=== PATIENT | male | born 1945 | race Caucasian/White ===

== ENCOUNTER 2018-09-25 23:30 | Inpatient (IN) | payer MEDICARE, OTHER ==
[~2018-09-25] VITALS: Ht 180.3 cm; Wt 107.9 kg
[~2018-09-25 23:30] MED LIST: ASPI81CH PO; Amlodipine Bes2.5 MG PO; Aspirin EC81 MG PO; BUDE200IP INH; BUDE6HFA; BUSP5 PO; Betapace120 MG PO; CARV25 PO; CHOL10002 PO; Coumadin5 MG PO; DIGO.125 PO; DILT30 PO; ENTRESTO 24 MG1 EACH PO; EZET10 PO; FURO20 PO; FURO40 PO; Ferosul325 MG PO; GABA300 PO; INSULANPEN SC; Isosorbide Mono60 MG PO; LISI20 PO; LONG ACTING INSULIN SC; METFORMIN HCL500 MG PO; Metformin HCl500 MG PO; NITR.4SL SL; NITR.6SL SL; Nitrostat0.4 MG SL; Novolin R100 UNIT/M SC; OMEP20ER PO; OMEPRAZOLE MAGN20 MG PO; OXYB5 PO; Omeprazole20 M1 PO; POTCHL10ER PO; Prozac20 MG PO; RANO500T PO; Ranexa1000 MG PO; Roxicodone5 MG PO; SHORT ACTING INSULIN SC; SPIR25 PO; Sotalol120 MG PO; VITAMIN D32000 UNIT PO; WARF5 PO; XARELTO20 MG PO; Zestril40 MG; [UNRECOGNIZED DRUG - OTHER] PO
[2018-09-25 23:46] LABS: BASOPHILS ABSOLUTE AUTO 0.06 K/mm3 (0.00-0.23); BASOPHILS PERCENT AUTO 1 % (0-2); EOSINOPHILS ABSOLUTE AUTO 0.08 K/mm3 (0.00-0.68); EOSINOPHILS PERCENT AUTO 1 % (0-6); Hematocrit 39.2 % (37.0-53.0); Hemoglobin 12.3 g/dL (13.5-17.5); IMMATURE GRAN ABSOLUTE AUTO 0.05 K/mm3 (0.00-0.10); IMMATURE GRAN PERCENT AUTO 0 % (0-1); LYMPHOCYTES ABSOLUTE AUTO 0.86 K/mm3 (0.84-5.20); LYMPHOCYTES PERCENT AUTO 7 % (21-46); MONOCYTES ABSOLUTE AUTO 0.75 K/mm3 (0.16-1.47); MONOCYTES PERCENT AUTO 6 % (4-13); Mean Corpuscular HGB 30.4 pg (26.0-34.0); Mean Corpuscular HGB Conc 31.4 g/dL (31.5-36.5); Mean Corpuscular Volume 97 fL (80-100); Mean Platelet Volume 10.8 fL (9.1-12.4); NEUTROPHILS ABSOLUTE AUTO 10.62 K/mm3 (1.96-9.15); NEUTROPHILS PERCENT AUTO 86 % (41-73); Platelet Count 291 K/mm3 (150-400); RDW Coefficient Variation 14.5 % (11.7-14.2); RDW Standard Deviation 51.8 fL (35.1-46.3); Red Blood Cell Count 4.05 M/mm3 (4.30-5.90); White Blood Cell Count 12.42 K/mm3 (4.00-11.30)
[2018-09-26 00:03] LABS: Alanine Aminotransfer (ALT/SGP 13 U/L (12-78); Albumin, Blood 3.7 g/dL (3.4-5.0); Albumin/Globulin Ratio 0.9 (0.8-1.8); Alk Phos 54 U/L (50-136); Anion Gap 10 mmol/L (6-16); Aspartate Aminotrans (AST/SGOT 12 U/L (12-37); Bilirubin, Total 1.2 mg/dL (0.1-1.0); Blood Urea Nitrogen 10 mg/dL (8-24); CO2, Blood 24 mmol/L (21-32); Calcium, Blood 9.1 mg/dL (8.5-10.1); Chloride, Blood 103 mmol/L (98-108); Creatinine, Blood 1.25 mg/dL (0.60-1.20); Globulin, Blood 4.1 g/dL (2.2-4.0); Glomerular Filtration Rate >60 (60-); Glucose, Blood 200 mg/dL (70-99); Potassium, Blood 4.1 mmol/L (3.5-5.5); Sodium, Blood 137 mmol/L (136-145); Total Protein, Blood 7.8 g/dL (6.4-8.2)
[2018-09-26 00:57] LABS: Magnesium, Blood 1.7 mg/dL (1.6-2.4); Troponin I 0.148 ng/mL (0.000-0.040)
[2018-09-26 01:00] LABS: Thyroid Stimulating Hormone 2.58 uIU/mL (0.360-4.800)
--- NOTE | 2018-09-26 06:21 | NUR ---
ARRIVAL TO ICU / SUMMARY PT ARRIVED TO ICU THIS MORNING PCU STATUS. VITALS STABLE. HEART MONITOR SHOWS NORMAL SINUS RHYTHM WITH BUNDLE BRANCH BLOCK. PT DENIES PAIN/DISCOMFORT. ADMISSION ASSESSMENT AND HISTORY COMPLETED PER PT RECOLLECTION AND MEDICAL RECORDS. PT ALERT AND ORIENTED BUT FORGETFUL ABOUT INFORMATION HE HAS PREVIOUSLY SHARED. REPEATS INFORMATION ABOUT HEALTH HISTORY, EVENTS OF THE NIGHT PRIOR AND MEDICATIONS TAKEN MULTIPLE TIMES. PT EDUCATED ABOUT PLAN OF CARE AND IS FORGETFUL THAT HIS HOME MEDS WILL BE RESUMED AT 0900. OTHERWISE, PT FOLLOWING DIRECTIONS AND PARTICIPATES IN CONVERSATIONS APPROPRAITELY. PT'S HOME CPAP SET UP BY RESPIRATORY THERAPY AND PT HAS TAKEN IT ON AND OFF INDEPENDENTLY. PT HAS REMAINED IN NSR WITH BBB, VITALS STABLE THROUGHOUT MORNING, ASSESSMENTS UNCHANGED.
--- NOTE | 2018-09-26 07:08 | NUR ---
REPORT TO ARUNA ZIMMER TO ASSUME CARE
--- NOTE | 2018-09-26 10:57 | NUR ---
0815 PT DENIESE CHEST PAIN OR CURRENT DISTRESS, HOWEVER PT HR ELEVATES AND SOB IS NOTED WITH STANDING TO VOID AND GET OOB. PT IS A/O AND HAS FREQUENT ECTOPY. PT ALSO HAS FAMILY IN VISITING.
--- NOTE | 2018-09-26 16:30 | NUR ---
PT HAS BEEN UP IN ROOM STANDING TO VOID TODAY WITH MOD. WOB NOTED WITH EXERTION. PT TO NUC MED AT 1545 VIA W/C AND BACK W/O INCIDENT. PT REQUESTING TO EAT. VSS NOTED.
--- NOTE | 2018-09-26 17:11 | NUR ---
PT IS RESTING W/O DISTRESS AFTER FIRST PART OF NUC MED TEST. PT VSS. NO C/O CHEST PAIN. REMAINS NS WITH EXERTIONAL RELATED TACHYCARDIA.
[2018-09-27 05:52] LABS: BASOPHILS ABSOLUTE AUTO 0.03 K/mm3 (0.00-0.23); BASOPHILS PERCENT AUTO 0 % (0-2); EOSINOPHILS ABSOLUTE AUTO 0.14 K/mm3 (0.00-0.68); EOSINOPHILS PERCENT AUTO 2 % (0-6); Hematocrit 32.8 % (37.0-53.0); Hemoglobin 10.6 g/dL (13.5-17.5); IMMATURE GRAN ABSOLUTE AUTO 0.05 K/mm3 (0.00-0.10); IMMATURE GRAN PERCENT AUTO 1 % (0-1); LYMPHOCYTES ABSOLUTE AUTO 1.14 K/mm3 (0.84-5.20); LYMPHOCYTES PERCENT AUTO 14 % (21-46); MONOCYTES ABSOLUTE AUTO 0.71 K/mm3 (0.16-1.47); MONOCYTES PERCENT AUTO 9 % (4-13); Mean Corpuscular HGB 30.9 pg (26.0-34.0); Mean Corpuscular HGB Conc 32.3 g/dL (31.5-36.5); Mean Corpuscular Volume 96 fL (80-100); Mean Platelet Volume 10.6 fL (9.1-12.4); NEUTROPHILS ABSOLUTE AUTO 6.17 K/mm3 (1.96-9.15); NEUTROPHILS PERCENT AUTO 75 % (41-73); Platelet Count 243 K/mm3 (150-400); RDW Coefficient Variation 14.6 % (11.7-14.2); RDW Standard Deviation 50.4 fL (35.1-46.3); Red Blood Cell Count 3.43 M/mm3 (4.30-5.90); White Blood Cell Count 8.24 K/mm3 (4.00-11.30)
--- NOTE | 2018-09-27 06:01 | NUR ---
SHIFT SUMMARY PT A&O X4, CALM AND COOPERATIVE. PT C/O CHRONIC NEUROPATHY DISCOMFORT RESULTING IN INABILITY TO SLEEP, CALL TO TIE KNITTER HELPER LENCHO W/ REQUEST FOR PT TO RECEIVE HOME DOSE OF GABAPENTIN, ORDERS GIVEN, SEE EMAR. PT ABLE TO SLEEP AFTER HOME DOSE GABAPENTIN GIVEN. PT LUNG SOUNDS CLEAR, DIM IN BASES. SPO2 > 92% ON RA OR CPAP WHILE SLEEPING. MONITOR SHOWS NSR W/ BBB. VSS. PT NPO SINCE MIDNIGHT W/ PLANS FOR STRESS TEST TODAY. WILL CONTINUE TO MONITOR AND PROVIDE CARE UNTIL REPORT OFF TO DAY SHIFT RN.
[2018-09-27 06:16] LABS: Anion Gap 6 mmol/L (6-16); Blood Urea Nitrogen 13 mg/dL (8-24); Bun/Creatinine Ratio 11.4 (12.0-20.0); CO2, Blood 27 mmol/L (21-32); Calcium, Blood 8.9 mg/dL (8.5-10.1); Chloride, Blood 104 mmol/L (98-108); Creatinine, Blood 1.14 mg/dL (0.60-1.20); Glomerular Filtration Rate >60 (60-); Glucose, Blood 121 mg/dL (70-99); Potassium, Blood 3.7 mmol/L (3.5-5.5); Sodium, Blood 137 mmol/L (136-145)
--- NOTE | 2018-09-27 07:41 | NUR ---
ASSUMED CARE: PT RESTING QUIETLY WITH CPAP IN PLACE. NPO FOR PROCEDURE. DENIES FURTHER NEEDS OR CONCERNS AT THIS TIME.
--- NOTE | 2018-09-27 14:12 | NUR ---
REPORT CALLED TO ARUNA SHEA. PT TRANSFERRED VIA WHEEL CHAIR TO MEDICAL FLOOR.
--- NOTE | 2018-09-27 16:41 | NUR ---
SHIFT SUMMARY ICU TRANSFER THIS AFTERNOON. PATIENT SETTLED INTO ROOM. DENIES PAIN, NAUSEA, OR SHORTNESS OF BREATH. PATIENT'S AT BEDSIDE. SECOND PART OF STRESS TEST TO BE COMPLETED TOMORROW. PATIENT MAY NOT HAVE ANY CAFFEINE AND NEEDS TO BE NPO AFTER BREAKFAST. CALL LIGHT IN REACH, WILL CONTINUE TO MONITOR.
--- NOTE | 2018-09-27 23:17 | NUR ---
CALLED TO HOSPITALIST FOR STOOL SOFTNER PER PT REQUEST. ORDERED DOCUSATE SODIUM SEE ORDER.
--- NOTE | 2018-09-28 06:37 | NUR ---
NOC SHIFT SUMMARY PT HAS BEEN PLEASANT AND COOPERATIVE WITH CARE THIS NIGHT. HE HAS SLEPT MUCH OF THIS NIGHT WITH NO COMPLAINTS. PER EYEGLASS MAKER HIS RATE AND RHYTHM ARE CURRENTLY SINUS AT 85 WITH 1ST DEGREE BLOCK. VSS. APPEARS IN NO ACUTE DISTRESS. WILL CONTINUE TO MONITOR.
--- NOTE | 2018-09-28 18:26 | NUR ---
PATIENT RESTED MOST OF THE DAY. NO ACUTE CHANGES. WAITING FOR CARDIOLOGY TO REVIEW CASE. PAGE WAS SENT. NO COMPLAINTS OF PAIN, SOB, OR NV.
--- NOTE | 2018-09-29 06:46 | NUR ---
NOC SHIFT SUMMARY PT HAS SLEPT MOST OF NIGHT. NO ACUTE CHANGES NOTED. HE HAS NOT HAD ANY COMPLAINTS OF PAIN, N/V, OR SOB. VSS. APPEARS IN NO ACUTE DISTRESS AT THIS TIME.WILL CONTINUE TO MONITOR.
--- NOTE | 2018-09-29 15:29 | NUR ---
1515 PATIENT DISCHARGED HOME. IV REMOVED, NO SS OF INFECTION NOTED. NO NEW MEDS. PATIENT EDUCATED REGARDING AFIB AND FOLLOWING UP WITH PRIMARY CARE DOCTOR . APPOINTMENTS MADE PER DISCHARGE ORDER. FAMILY PACKED UP BELONGINGS AND PATIENT WHEELED OUT TO CAR TO TO TAKE HOME.
== END 2018-09-29 15:30 | disposition home or self-care (01) | DRG 308 ==
LOC: ER 23:30 → ICUW 09-26 00:23 → ICUE 09-26 19:57 → MEDS 09-27 14:12
PROVIDERS: Emergency Medicine; Internal Medicine; ADMIT Family Medicine
DX: I48.0 Paroxysmal atrial fibrillation (principal); I50.23 Acute on chronic systolic (congestive) heart failure; N17.9 Acute kidney failure, unspecified; I25.10 Atherosclerotic heart disease of native coronary artery without angina pectoris; Z95.5 Presence of coronary angioplasty implant and graft; E78.5 Hyperlipidemia, unspecified; G47.33 Obstructive sleep apnea (adult) (pediatric); Z90.79 Acquired absence of other genital organ(s); Z79.82 Long term (current) use of aspirin; F32.9 Major depressive disorder, single episode, unspecified; I11.0 Hypertensive heart disease with heart failure; E11.40 Type 2 diabetes mellitus with diabetic neuropathy, unspecified; Z79.84 Long term (current) use of oral hypoglycemic drugs; J44.9 Chronic obstructive pulmonary disease, unspecified; I27.20 Pulmonary hypertension, unspecified; I08.3 Combined rheumatic disorders of mitral, aortic and tricuspid valves
CPT/HCPCS: 36415; 78452; 80048; 80053; 82947; 83735; 84443; 84484; 85025; 93017; 93306; 96374; 99285-25; A9270; A9500; J0153; J0706; J1815; J1940; J2785; J7030

== ENCOUNTER 2018-10-06 06:56 | Inpatient (IN) | payer OTHER, MEDICARE ==
[~2018-10-06] VITALS: Ht 180.3 cm; Wt 106.8 kg
--- NOTE | 2018-10-06 18:13 | NUR ---
PT'S CHERELLE WAS HERE. THE PT IS STILL VERY SOMNULENT. 45 MINUTES AGO HE WAS VOMITING A SMALL AMOUNT OF PHLEGM. HE IS NOW SLEEPING AGAIN. V/S STABLE. RIGHT GROIN SITE STABLE, SHEATH INTACT. RIGHT RADIAL WRIST SITE IS ALSO WNL, TR BAND IS IN PLACE.
--- NOTE | 2018-10-06 19:36 | NUR ---
174 The pt arrived at 1700, very somnulent, wearing oxygen via n.c. delivery, supine in bed. Right groin site was visulized with Ellen Vanessa and Ryan, both RNs from the [facility]. Arterial sheath is still in place. No bruising, no swelling, no evidence of hematoma. Distal pulses are palpable without difficulty on both lower extremities, but feet are noted to be pale and cool, albeit with brisk capillary refill. The right wrist is noted to have a white immobilizer board in place, and the TR band is also in place. NO evidence of hematoma, swelling or active bleeding. Cap refill on the right hand is noted to be less than 3 seconds. Dried blood is noted around the TR band, but no evidence that any bleeding has happened recently. The pt became more awake and was dry heaving at 174, expectorating some pale yellow and white sputum, in a small amount. AFter this he was again falling asleep. He occasionally awakened and asked for his cpap; however, given his somnulence and nausea with vomiting, this was not applied. Continuous oxymetry and supplemental oxgyen are in place. spo2 noted to be WNL while on 3 l/min delivery via nasal prongs. The pt is supine, in a trendelberg position to elevate his head without flexion of the right hip.
--- NOTE | 2018-10-06 19:44 | NUR ---
1829 The pt stated that he needed to void; however, he was unable to void using the urinal, and requested a urinary catheter. I attempted to insert a 14 guage garcia, but met with resistance, so it was aborted. Passed along in report that perhaps an attempt with a coude or with a straight catheter would be better.
[2018-10-06 19:57] LABS: Source, Urine Catheter
--- NOTE | 2018-10-06 20:04 | NUR ---
ASSUMED PT CARE AT 1915 PT LYING SUPINE IN BED WITH RIGHT LEG STRAIGHT. ARTERIAL SHEATH REMAINS IN PLACE TO RIGHT GROIN. NO SIGNS OF BLEEDING, HEMATOMA, OR SWELLING AROUND SITE. MINIMAL OOZING NOTED UNDER DRESSING. LEFT GROIN SITE WHERE INITIAL ACCESS WAS ATTEMPTED IS TRAINING PROGRAM ASSISTANT WITH NO DRAINAGE, HEMATOMA, TENDERNESS, OR SWELLING. TR BAND REMAINS IN PLACE TO RIGHT WRIST INFLATED FULLY; NO HEMATOMA, BLEEDING, SWELLING, OR TENDERNESS NOTED AROUND SITE; DRY BLOOD NOTED UNDER TR BAND. PT VERY RESTLESS AND LETHARGIC UPON ENTERING ROOM. PT STATED HE HAD TO PEE IN WHICH THE DAY RN STATED THAT SHE ATTEMPTED A 14F FLORES AND WAS UNSUCCESSFUL. OBTAINED A 14F COUDE, WHICH WAS A DIFFICULT INSERTION, BUT SUCCESSFUL ATTEMPT; DARK, DANIEL COLORED URINE WITH SEDIMENT NOTED; UA SENT TO LAB. PT APPEARED TO BE MORE RELAXED AFTER FLORES INSERTION. PT IS ALERT AND ORIENTED AND COMPLIANT WITH KEEPING RIGHT LEG STRAIGHT. HAD THE URGE TO HAVE A BM; LOG ROLLED TO BEDPAN, BUT PT WASN'T SUCCESSFUL. NO NAUSEA NOTED AT THIS TIME; HOWEVER, PRIOR TO SHEATH PULL WILL ASK FOR ORDERS FOR PHENERGAN D/T ZOFRAN BEING UNEFFECTIVE IN FINANCIAL MANAGEMENT CONSULTANT. CALL OUT TO DR. MAHAN SECONDARY TO PTT BEING GREATER THAN 40 AND NO OTHER ORDERS TO RE-DRAW PTT. AWAITING CALL BACK AT THIS TIME. NO FAMILY IS AT BEDSIDE. PT IS ABLE TO MAKE HIS NEEDS KNOWN AT THIS TIME.
[2018-10-06 20:06] LABS: Bilirubin, Urine Neg (Neg); Blood, Urine 1+ (Neg); Glucose Qualitative, Urine Neg (Neg); Ketones, Urine 1+ (Neg); Leukocyte Esterase, Urine 1+ (Neg); Nitrite, Urine Neg (Neg); Protein, Urine 2+ (Neg); Urobilinogen, Urine NORM (Normal)
[2018-10-06 20:11] LABS: Appearance, Urine Clear (Clear); Color, Urine Yellow (P-Yellow)
[2018-10-06 20:12] LABS: Bacteria Rare /hpf; Red Blood Cells, Urine 0-2 /hpf (0-2); Squamous Epithelial Cells Rare /hpf (Few); White Blood Cells, Urine 0-2 /hpf (0-5)
--- NOTE | 2018-10-06 20:49 | NUR ---
SPOKE WITH DR. MCDONALD NEW ORDERS TO GO AHEAD AND PULL SHEATH. ORDERS FOR PHENERGAN IF NEEDED, BUT DR. MCDONALD STATED BENADRYL WORKS BETTER FOR PT.
--- NOTE | 2018-10-06 22:00 | NUR ---
PULLED ARTERIAL SHEATH FROM RIGHT FEMORAL SITE AT 2125; HELD MANUAL PRESSURE FOR 20 MINUTES UNTIL HEMOSTASIS WAS ACHIEVED. JOCY DRESSING APPLIED WITH TRANSPARENT DRESSING COVERING. NO OOZING, HEMATOMA, SWELLING, OR TENDERNESS NOTED AROUND SITE. DISTAL PULSES ARE PALPABLE AND STRONG. CAP REFILL > 3 SECS; HOWEVER, THIS WAS ALSO NOTED PRIOR TO SHEATH PULL. OXYGEN SATURATIONS MAINTAINED GREATER THAN 92% WITH GOOD PLETH. PT TOLERATED PULL VERY WELL WITH NO DROP IN HR OR DIZZINESS. PT DENIED N/V. STILL VERY DROWSY AND JUST WANTS TO SLEEP.
--- NOTE | 2018-10-07 03:15 | NUR ---
PT HAD ONE EPISODE OF VOMITING. PT WAS LYING AT A 30 DEGREE ANGLE, SAT HIMSELF UP AND LEANED OVER THE RAIL TO VOMIT. CLEAR LIQUID NOTED TO EMESIS. LUNG SOUNDS COARSE T/O PRIOR TO EMESIS; HOWEVER, YOU CAN NOW AUDIBLY HEAR PT GURGLING. EDUCATED PT TO COUGH AND SPIT UP SECRETIONS. RIGHT GROIN SITE REMAINS CDI WITH NO OOZING OR HEMATOMA NOTED. WILL CONTINUE TO MONITOR SITE CLOSELY. MEDICATED WITH PRN BENADRYL AND DR. MCDONALD STATED THAT ZOFRAN WAS UNEFFECTIVE, BUT BENADRYL WAS EFFECTIVE.
--- NOTE | 2018-10-07 06:36 | NUR ---
END OF SHIFT SUMMARY RIGHT FEMORAL SITE HAS REMAINED SOFT, NON-TENDER WITH NO OOZING, HEMATOMA, OR SWELLING NOTED. JOCY DRSG IS CDI. RIGHT RADIAL SITE HAS ALSO REMAINED WITH NO OOZING, HEMATOMA, OR SWELLING; SITE IS SOFT, NON-TENDER; JOCY DRSG IS CDI. PT HAD THE ONE EPISODE OF EMESIS; CLEAR. NO FURTHER EPISODES. MEDICATED WITH BENADRYL X1 PER ORDERS. CALL LIGHT WITHIN REACH; PT ABLE TO MAKE NEEDS KNOWN.
--- NOTE | 2018-10-07 09:00 | NUR ---
ASSUMED CARE OF PT AT APPROXIMATELY 0730. PT ALERT AND ORIENTED. VS STABLE. 02 SATS REMAIN ABOVE 90% ON 4L NC. PT TITRATED TO 2L NC. FEMORAL SITE COVERED WITH JOCY DRESSING IS FREE FROM BLEEDING, HEMATOMA FORMATION, OR BRUISING. RIGHT RADIAL SITE COVERED WITH JOCY DRESSING WITH NO SINGS OF BLEEDING, HEMATOMA, OR BRUISING. PT REPORTS FEELING NAUSEOUS AND IS DRY HEAVING. WILL MEDICATE PER EMAR. WILL CONTINUE TO MONITOR.
[2018-10-07 13:27] LABS: BASOPHILS ABSOLUTE AUTO 0.02 K/mm3 (0.00-0.23); BASOPHILS PERCENT AUTO 0 % (0-2); EOSINOPHILS PERCENT AUTO 0 % (0-6); Hematocrit 35.1 % (37.0-53.0); Hemoglobin 11.3 g/dL (13.5-17.5); IMMATURE GRAN ABSOLUTE AUTO 0.07 K/mm3 (0.00-0.10); IMMATURE GRAN PERCENT AUTO 1 % (0-1); LYMPHOCYTES ABSOLUTE AUTO 0.68 K/mm3 (0.84-5.20); LYMPHOCYTES PERCENT AUTO 5 % (21-46); MONOCYTES ABSOLUTE AUTO 0.83 K/mm3 (0.16-1.47); MONOCYTES PERCENT AUTO 6 % (4-13); Mean Corpuscular HGB 30.5 pg (26.0-34.0); Mean Corpuscular HGB Conc 32.2 g/dL (31.5-36.5); Mean Platelet Volume 10.6 fL (9.1-12.4); NEUTROPHILS ABSOLUTE AUTO 13.17 K/mm3 (1.96-9.15); NEUTROPHILS PERCENT AUTO 89 % (41-73); Platelet Count 298 K/mm3 (150-400); RDW Coefficient Variation 14.1 % (11.7-14.2); RDW Standard Deviation 49.4 fL (35.1-46.3); Red Blood Cell Count 3.71 M/mm3 (4.30-5.90); White Blood Cell Count 14.77 K/mm3 (4.00-11.30)
[2018-10-07 13:28] LABS: Mean Corpuscular Volume 95 fL (80-100)
[2018-10-07 13:50] LABS: Alanine Aminotransfer (ALT/SGP 13 U/L (12-78); Albumin, Blood 3.3 g/dL (3.4-5.0); Albumin/Globulin Ratio 0.8 (0.8-1.8); Alk Phos 50 U/L (50-136); Anion Gap 7 mmol/L (6-16); Aspartate Aminotrans (AST/SGOT 18 U/L (12-37); Bilirubin, Direct 0.2 mg/dL (0.0-0.3); Bilirubin, Indirect 0.6 mg/dL (0.1-0.7); Bilirubin, Total 0.8 mg/dL (0.1-1.0); Blood Urea Nitrogen 21 mg/dL (8-24); Bun/Creatinine Ratio 19.3 (12.0-20.0); CHOL/HDL RATIO 5.6; CO2, Blood 26 mmol/L (21-32); Calcium, Blood 8.6 mg/dL (8.5-10.1); Chloride, Blood 108 mmol/L (98-108); Cholesterol 223 mg/dL (50-200); Creatinine, Blood 1.09 mg/dL (0.60-1.20); Globulin, Blood 3.9 g/dL (2.2-4.0); Glomerular Filtration Rate >60 (60-); Glucose, Blood 150 mg/dL (70-99); HDL Cholesterol 40 mg/dL (>39); LDL/HDL RATIO 3.2; Low Density Lipoprotein Chol 129 mg/dL (0-110); Magnesium, Blood 2.1 mg/dL (1.6-2.4); Potassium, Blood 3.8 mmol/L (3.5-5.5); Sodium, Blood 141 mmol/L (136-145); Total Protein, Blood 7.2 g/dL (6.4-8.2); Triglycerides 269 mg/dL (30-160); Very Low Density Lipoprot Chol 54 mg/dL (6-32)
[2018-10-07 13:51] LABS: Thyroid Stimulating Hormone 0.967 uIU/mL (0.360-4.800)
--- NOTE | 2018-10-07 15:08 | NUR ---
REPORT CALLED TO MEDICAL FLOOR RN. PT SENT UP BY BED.
--- NOTE | 2018-10-07 15:21 | NUR ---
TRANSFER NOTE RECEIVED HANDOFF FROM ICU NURSE GUNJAN. 73 YR OLD MALE ADMITTED FOR NSTEMI. FULL CODE. STENT PLACED IN LAD. PT ADMITTED FOR OBSERVATION, KEPT FOR ONE MORE NIGHT DUE TO SEVERE NAUSEA/VOMITING. 2 LPM O2 VIA NC. USES CPAP AT NIGHT AT HOME. NEW FLORES IN SINCE ADMIT DUE TO RETENTION. HX OF BPH, TURP, STENTS, CABBG X3, DM2, HTN, CKD COPD. RT GROIN AND RT RADIAL WERE ACCESSED IN VALLEZ FILTER OPERATOR, JOCY DRESSINGS IN PLACE - ARMBOARD REMAINS ON RT ARM. NS RUNNING @ 100 ML/HR. PT NOT EATING DUE TO NAUSEA. XARELTO FOR DVT PROPHYLAXIS. BLOOD SUGARS Q 6 HRS WHILE PT NOT EATING. BENEDRYL AVAILABLE IV Q 4HRS FOR NAUSEA.
--- NOTE | 2018-10-07 16:04 | NUR ---
SHIFT SUMMARY 73 YR OLD MALE ADMITTED FOR NSTEMI, OBSERVATIONAL STATUS DUE TO NAUSEA/VOMITTING. FULL CODE STATUS. TRANSFERED FROM ICU TODAY. 2 LPM O2 VIA NC. USES CPAP AT HOME AT NIGHT. STENT PLACED - DIAGONAL VEIN GRAFT. HX:DM 2 CAD, HTN, CKD, CABBG X3, TURP, BPH, COPD, STENTS. RT GROIN AND RT RADIAL ACCESS FOR STENT PROCEDURE, NOW DRESSED WITH JOCY DRESSINGS. ARMBOARD REMAINS ON RT ARM. NEW FLORES PLACED FOR RETENTION. PT WILL NOT EAT DUE TO NAUSEA SO GLUCOSE CHEMSTICKS Q 6 HRS. PT IS ON XARELTO. NS RUNNING IN 20 IV LEFT WRIST @ 100 ML/HR. DIARRHEA AT HOME, BUT NOT SINCE ADMIT. ON TELEMETRY: NSR W/BBB @ 76 BPM PER PCU DRILLER AND REAMER. USES A CANE AT HOME @ BASELINE. HAVE NOT HAD HIM UP DUE TO DROWSINESS. IV BENEDRYL AVAILABLE Q 4 HRS FOR NAUSEA.
--- NOTE | 2018-10-07 20:31 | NUR ---
PATIENT RESTING IN BED; DYSPNEA UPON EXERTION. FLORES CATH IN PLACE DRAINING CLEAR YELLOW URINE ASSESSMENTS COMPLETED. PATIENT DENIES PAIN. IV SITE LW C/D/I INFUSING NS AT 100 ML/HR. PATIENT COMPLAINS OF NAUSEA AND COUGHIN INTERMITTENTLY. RAISED HOB, EDUCATED PATIENT REGARDING ASPIRATION RISK. GAVE BENEDRYL IVP, AND BEDTIME MEDS. DRESSINGS X2 C/D/I. SPOKE TO TELEMETRY, PATIENT HR ELEVATED TO 170S WHILE ADJUSTING HOB, BUT THEN SETTLED TO 90 BOM, NSR WITH OCCASIONAL OVCS AND 1ST DEGREE BLOCK. PATOENT DENIES PAIN. WILL CONTINUE TO MONITOR.
[2018-10-08 04:53] LABS: BASOPHILS ABSOLUTE AUTO 0.02 K/mm3 (0.00-0.23); BASOPHILS PERCENT AUTO 0 % (0-2); EOSINOPHILS PERCENT AUTO 0 % (0-6); Hematocrit 33.9 % (37.0-53.0); Hemoglobin 10.6 g/dL (13.5-17.5); IMMATURE GRAN ABSOLUTE AUTO 0.08 K/mm3 (0.00-0.10); IMMATURE GRAN PERCENT AUTO 1 % (0-1); LYMPHOCYTES PERCENT AUTO 7 % (21-46); MONOCYTES ABSOLUTE AUTO 1.06 K/mm3 (0.16-1.47); MONOCYTES PERCENT AUTO 7 % (4-13); Mean Corpuscular HGB 29.6 pg (26.0-34.0); Mean Corpuscular HGB Conc 31.3 g/dL (31.5-36.5); Mean Corpuscular Volume 95 fL (80-100); Mean Platelet Volume 10.6 fL (9.1-12.4); NEUTROPHILS ABSOLUTE AUTO 12.19 K/mm3 (1.96-9.15); NEUTROPHILS PERCENT AUTO 85 % (41-73); Platelet Count 295 K/mm3 (150-400); RDW Coefficient Variation 14.5 % (11.7-14.2); RDW Standard Deviation 50.4 fL (35.1-46.3); Red Blood Cell Count 3.58 M/mm3 (4.30-5.90); White Blood Cell Count 14.35 K/mm3 (4.00-11.30)
[2018-10-08 05:42] LABS: Anion Gap 7 mmol/L (6-16); Blood Urea Nitrogen 21 mg/dL (8-24); Bun/Creatinine Ratio 19.1 (12.0-20.0); CO2, Blood 25 mmol/L (21-32); Calcium, Blood 8.7 mg/dL (8.5-10.1); Chloride, Blood 110 mmol/L (98-108); Glomerular Filtration Rate >60 (60-); Glucose, Blood 154 mg/dL (70-99); Magnesium, Blood 2.1 mg/dL (1.6-2.4); Potassium, Blood 3.7 mmol/L (3.5-5.5); Sodium, Blood 142 mmol/L (136-145)
[2018-10-08 06:33] LABS: International Normalized Ratio 1.2; Prothrombin Time Results 12.5 Sec (9.7-11.5)
--- NOTE | 2018-10-08 16:20 | NUR ---
SHIFT SUMMARY 73 YR OLD MALE ADMITTED FOR NSTEMI. FULL CODE STATUS. IV FLUIDS DC'D. PT HAS BEGUN DRINKING FLUIDS AND TRYING TO EAT SOME SMALL AMOUNTS. DENIES NAUSEA TODAY. TELEMETRY SHOWS A 1ST DEGREE BLOCK @ 86 BPM. A NEW 20 IV WAS PLACED IN RT AC FOR A CT SCAN OF THE HEAD TODAY. O2 IS AT 2 LPM. PT IS ACHS BLOOD GLUCOSE CHEMSTICKS, CARDIAC DIET. FLORES CATHETER IS PATENT AND DRAINING. FEMORAL AND RADIAL ACCESSES FOR A PREVIOUS STENT PROCEDURE ARE COVERED IN JOCY DRESSINGS. ARMBOARD IS STILL IN PLACE FOR RADIAL ACCESS. PT IS MORE ALERT AND ORIENTED TODAY AND HAS NOT REQUIRED BENEDRYL IV COVERAGE.
--- NOTE | 2018-10-08 21:58 | NUR ---
NOTIFIED DR KAYLIE MCDONALD OF PT'S ELEVATED HR OF 186. NEW ORDERS RECEIVED AND PLACED. EKG STRIPS SENT TO DR MCDONALD TO REVIEW. PT TO BE TRANSFERRED TO PCU.
[2018-10-08 22:36] LABS: Anion Gap 12 mmol/L (6-16); Blood Urea Nitrogen 19 mg/dL (8-24); Bun/Creatinine Ratio 19.1 (12.0-20.0); CO2, Blood 19 mmol/L (21-32); Calcium, Blood 8.7 mg/dL (8.5-10.1); Chloride, Blood 106 mmol/L (98-108); Glomerular Filtration Rate >60 (60-); Glucose, Blood 203 mg/dL (70-99); Magnesium, Blood 2.1 mg/dL (1.6-2.4); Potassium, Blood 3.8 mmol/L (3.5-5.5); Sodium, Blood 137 mmol/L (136-145)
[2018-10-09 06:27] LABS: International Normalized Ratio 1.19; Prothrombin Time Results 12.4 Sec (9.7-11.5)
--- NOTE | 2018-10-09 08:03 | NUR ---
END OF SHIFT SUMMARY ASSUMED CARE OF PT FROM MEDICAL FLOOR VIA REGIONAL RECRUITER R/T HR 180'S AFIB @2140. PT HAS HX OF AFIB AT TIMES. PT GIVEN IV METOPROLOL 5MG AND HIS ORDERED DOSE OF SOTALOL AND TRANSFERRED TO THE PCU. PT'S HR PROGRESSIVELY DECREASED AND THEN RHYTHM CONVERTED TO SR, 1 DEGREE HB, WITH PVC'S AROUND 0130. EVENT PLACED IN CHART. PT'S HR HAS REMIANED IN THE 90'S SINCE THEN. LIMITS ON TELE MONITORING LOWERED TO 130 HR. PT HAS REMAINED ON 2L NC. PER REPORT, PT EXPERIENCED A STROKE THIS HOSPITALIZATION AFTER ANGIOGRAM AND STENT PLACEMENT FOR NSTEMI. PRESENTS WITH R SIDED WEAKNESS BUT CAN MOVE R LEG AND ARM, JUST WEAK. PTS PUPILS REACTIVE EQUALLY. NO FACIAL DROOPING NOTICED. PT TALKING APPROPRIATLEY WITH STAFF BUT APPEARS TO STRUGGLE FINDING WORDS TO SAY AT TIMES. PT STATES THIS IS NOT NORMAL. HAS FOREARM BOARD RELATED TO PREV ANGIO. SITE STABLE WELL R GROIN SITE. DR MCDONALD CALLED FOR CLARIFICATION ON IV METOPROLOL DOSE. NOTIFIED ABOU CHANGE IN RHTYHM. PLACES PRN IV METOPROL 5MG x2 IF NEEDED IF RHYTHM CONVERTS BACK TO AFIB. ORDER PLACED IN EMAR. PT HAS BEEN RESTING FOR MAJORITY OF SHIFT POST ASSESMENT. REPORT GIVEN TO ONCOMING NURSE.
--- NOTE | 2018-10-09 08:11 | NUR ---
QTC 0.57 PER SHANK TAPER @0811. WITH LOOKING THROUGH PAST EKG'S, PT'S BASELINE QTC APPEARS TO RANGE FROM .45 TO .524.
--- NOTE | 2018-10-09 23:57 | NUR ---
Assumed care of pt at approx 1900. VSS. No apparent sign of distress. O2 saturations >90% on 2LNC. 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 Right arm with N/T, L arm w/o N/T per pt report. pt reports neuropathy at baseline in BLE. Pt weak throughout, with noted increased weakness in right arm. Pt is PEARRL, no facial droop, speech is thick with occasional studder. Pt able to swallow PO medication by mouth with water. No events on tele. Pt denies chest pain or chest pressure. pt denies SOB. R groin site dressing CDI, no presence of hematoma or signs of bleed present. R radial site CDI, no precense of hematoma or signs of bleed present. Pt denies pain at this time. See shift assessment for detailed assessment. Pt states "I want to sleep tonight". Pt currently resting comfortably in bed. Calls appropriately. Call light within reach, bed in lowest and locked position. Will continue to moniotr and update as needed.
--- NOTE | 2018-10-10 05:27 | NUR ---
Shift Summary Pt slept throughout the majority of this shift. VSS. No apparent sign of distress. Pt denies any chest pain or chest pressure. pt denies SOB and no increase oxygen demand this shift; pt remains at 2L NC with o2 saturations >90%. Pt remains alert and oriented to person, place, time, event. Speech remains thick, unchanged from initial assessment. Pt continues to report right sided weakness, primarily to the right hand/arm. Pupils remains PEARRL. Right radial site remains CDI, soft to the touch, no s/sx hematoma or bleed. Pt denies pain in right radial site. R groin site with devika dressing CDI, soft to the touch, no s/sx hematoma or bleed. Pt denies pain in groin site. No events on tele this shift. HR and BP stable. Pt in NSR. 20 G in L wrist flushed this shift with 10ml NS. Dressing CDI. Pt denies pain with flush, no redness, streaking, infiltration noted. Will continue to monitor and update
[2018-10-10 05:57] LABS: International Normalized Ratio 1.23; Prothrombin Time Results 12.8 Sec (9.7-11.5)
[2018-10-10 08:09] LABS: Source, Urine Catheter
[2018-10-10 08:26] LABS: Appearance, Urine Hazy (Clear); Color, Urine Yellow (P-Yellow); Glucose Qualitative, Urine Neg (Neg); Ketones, Urine Neg (Neg); Leukocyte Esterase, Urine 3+ (Neg); Nitrite, Urine Neg (Neg); Protein, Urine 2+ (Neg); Specific Gravity, Urine 1.015 (1.003-1.022); Urobilinogen, Urine 1+ (Normal)
[2018-10-10 08:27] LABS: Bacteria Few /hpf; Bilirubin, Urine Neg (Neg); Blood, Urine 4+ (Neg); Squamous Epithelial Cells Rare /hpf (Few); White Blood Cells, Urine 25-50 /hpf (0-5)
--- NOTE | 2018-10-10 17:22 | NUR ---
SHIFT SUMMARY PT HAS BEEN A&O X3 WITH NO ACUTE CHANGES . PT WAS CANTANKEROUS THIS MORNING, BUT HAS BEEN COOPERATIVE EVER SINCE. SPEECH CAN BE DIFFICULT TO UNDERSTAND AND HE CAN BE SLOW TO RESPOND, BUT HAS BEEN ALERT AND ORIENTED. PT IS A 2 PERSON ASSIST TO TURN AN PIVOT TO [facility], REQUIRES CONTINUAL DIRECTING FOR LOWER BODY MOVEMENTS. WEAKNESS ON RIGHT SIDE FOR UPPER AND LOWER EXTREMITIES. FLORES WAS REMOVED THIS MORNING AND PT VOIDED 2 HOURS AFTERWARDS. VSS. CALL LIGHT IN REACH, BED IN LOWEST POSITION, PERSONAL ITEMS IN REACH, AND BED ALARM ON, WILL CONTINUE TO MONITOR.
--- NOTE | 2018-10-11 01:15 | NUR ---
Assumed care of pt at approx 1900. VSS. Pt alert and oriented. No apparent sign of distress. O2 saturations >92% on 1.5L NC. Pt denies CP/pressure, denies SOB. Pt calls appropriately, bed alarm on, bed in lowest and locked position and call light within reach. Right sided weakness improving, oral surgeon strength improving. Pt still with poor coordination, noted especially on the right side. Slurred/thick speech improving, pt remains slow to respond. Pt states he feels better. Per day shift RN, pt desires [facility] rehab, if [facility] doesn't have a bed, he prefers the [place] [facility]. Social Service consult in for Pt. R radial site open to air. No sign of hematoma or bleed. CDI. R groin site with devika dressing, CDI. No sign of hematoma or bleed. Pt denies tenderness at either site. See shift assessment for detailed assessment. Will continue to monitor and update as needed.
--- NOTE | 2018-10-11 06:03 | NUR ---
Shift Summary No acute changes this shift. Pt remains a&o with improving strength in R side. Pt VSS, no apparent signs of distress. Pt denies chest pain, chest pressure, pt complaints of SOB this AM. Dr. Myles in at 0600 to see pt[address] Per dr. Myles, pt will be discharged today to [facility]. Dr. Myles requesting help in discharge as he is unfamiliar with routine inpatient discharges. Will pass this along to dayshift RN. Pt uses urinal indepedantly, calls appropriately, bed alarm on with no attempts this shift to exit bed unaccompanied. Will continue to monitor and update as needed
--- NOTE | 2018-10-11 07:49 | NUR ---
NURSING PCU DAYSHIFT: Assumed care of pt at approx 0700. A/O pleasant, cooperative w/care. Denies any pain/discomfort. Mild R facial droop w/L tongue deviation, R side numbness, chronic neuropathy of BLE. Skin is fairly intact, recovered R groin and R radial site. Tele in place, NSR w/BBB and occ PVC's, no c/o CP/pressure, SBP 130's prior to a.m. meds, no noted edema. L/S fairly cta t/o w/dim R base, c/o dyspnea at rest, O2 sat upper 90's on RA, occ dry/RESEARCH AND DEVELOPMENT TECHNICIAN cough, respiration rapid w/accessory muscle use. Abd mildly distended, BT hyperactive, voiding using urinal at bedside. PIV x2, s/l. No s/s of acute distress at this time. Possible discharge to SNF today per report. Pt denies any current needs or questions regarding plan of care. Call light in reach and pt is able to use w/o difficulty. Awaiting rounding from ed manager, cont to monitor for any changes.
--- NOTE | 2018-10-11 17:04 | NUR ---
NURSING PCU DAYSHIFT TRANSFER SUMMARY: No acute changes noted t/o the shift. ST, PT, OT in to assess pt. Seen by induction machine setter, plan continues for discharge to SNF though will be delayed until 10/12. Family at bedside t/o majority of the day, plan of care discussed, all questions answered. Pt changed to medical status w/o tele. Room assignment received, will give telephone report to accepting RN prior to transfer. No s/s of acute distress at this time, call light in reach, cont to monitor until transfer is completed.
--- NOTE | 2018-10-12 06:29 | NUR ---
SHIFT SUMMARY PT A/O. USING URINAL NO C/O PAIN. SAYS HIS R SIDE IS WEAKER THAN L. NO O2 NEEDED. SAYS HE DIDN'T GET MUCH SLEEP T/O NIGHT, WORE CPAP. SOB C EXCERTION, TALKING. EAGER TO D/C. CALL LIGHT IN REACH.
[2018-10-12] MEDS ORDERED: EZET10 PO (08:25)
[2018-10-12] MEDS ORDERED: Acetaminophen325 M1 PO (08:25)
[2018-10-12] MEDS ORDERED: TAMS.4ER PO (08:26)
--- NOTE | 2018-10-12 08:40 | NUR ---
D/C MED REC: PER DR. MAHAN TELEPHONE ORDER. CONTINUE- 1) ASPIRIN EC 81 MG PO DAILY 2) VITAMIN D3 2,000 UNITS PO DAILY 3) FUROSEMIDE 40 MG PO DAILY 4) NITROGLYCERIN 0.4 MG SL Q5 MINUTES PRN CHEST PAIN 5) POTASSIUM CHLORIDE 10 MEQ PO DAILY 6) SPIRONOLACTONE 25 MG PO DAILY DISCONTINUE- 1) METFORMIN 1,000 MG PO BID 2) PRILOSEC 20 MG PO BID 3) RANEXA 1,000 MG PO BID
--- NOTE | 2018-10-12 14:47 | NUR ---
DISCHARGE SUMMARY PATINET ALERT AND ORIENTED. DENIES ANY PAIN. C/O SOB W/ EXERTION. RIGHT SIDED WEAKNESS PRESENT, PATIENT WAS A 2 PA WITH FWW AND GAIT BELT. IV X2 D/C, WNL. [facility] TRANSPORT TO TAKE PATIENT TO [facility]. AT HIS SIDE, ALL BELONGINGS IN HAND. REPORT CALLED TO LORENZO VALDOVINOS AT [facility].
== END 2018-10-12 13:25 | DRG 280 ==
LOC: MHTC 06:56 → ICUW 16:28 → MEDS 10-07 14:59 → PCU 10-08 22:12 → ICUW 10-11 07:28 → PCU 10-11 13:29 → MEDS 10-11 18:22 → ENPENDDIS 10-12 08:05 → MEDS 10-12 13:25
PROVIDERS: Internal Medicine Cardiovascular Disease; ADMIT Internal Medicine Cardiovascular Disease
PROC: 5A09357 Assistance with Respiratory Ventilation, Less than 24 Consecutive Hours, Continuous Positive Airway Pressure (ICD-10-PCS; principal; 2018-10-07)
DX: I21.4 Non-ST elevation (NSTEMI) myocardial infarction (principal); I63.432 Cerebral infarction due to embolism of left posterior cerebral artery; I50.22 Chronic systolic (congestive) heart failure; I13.0 Hypertensive heart and chronic kidney disease with heart failure and stage 1 through stage 4 chronic kidney disease, or unspecified chronic kidney disease; I48.4 Atypical atrial flutter; E11.9 Type 2 diabetes mellitus without complications; I48.0 Paroxysmal atrial fibrillation; J44.9 Chronic obstructive pulmonary disease, unspecified; N40.0 Benign prostatic hyperplasia without lower urinary tract symptoms; G47.33 Obstructive sleep apnea (adult) (pediatric); Z87.891 Personal history of nicotine dependence; Z79.82 Long term (current) use of aspirin; Z95.5 Presence of coronary angioplasty implant and graft; E11.22 Type 2 diabetes mellitus with diabetic chronic kidney disease; I25.5 Ischemic cardiomyopathy; E78.5 Hyperlipidemia, unspecified; Z79.84 Long term (current) use of oral hypoglycemic drugs; E78.00 Pure hypercholesterolemia, unspecified; N32.0 Bladder-neck obstruction; I25.119 Atherosclerotic heart disease of native coronary artery with unspecified angina pectoris; N18.9 Chronic kidney disease, unspecified
CPT/HCPCS: 36415; 51703; 70496; 70498; 80048; 80061; 80076; 81001; 82947; 83036; 83690; 83735; 83880; 84443; 84484; 85025; 85610; 85730; 87077; 87086; 87186; 92523; 93005; 93010; 94667; 96361; 96374; 96375; 96376; 97110; 97112; 97162; 97166; 97530; G0378; J1200; J1940; J7030; Q9967

== ENCOUNTER 2019-10-25 16:18 | Observation (INO) | payer MEDICARE, OTHER ==
[~2019-10-25] VITALS: Ht 182.9 cm; Wt 84.5 kg
[~2019-10-25 16:18] MED LIST changes: +Acetaminophen325 M1 PO; +TAMS.4ER PO
[2019-10-25 17:09] LABS: BASOPHILS ABSOLUTE AUTO 0.05 K/mm3 (0.00-0.23); BASOPHILS PERCENT AUTO 1 % (0-2); EOSINOPHILS ABSOLUTE AUTO 0.04 K/mm3 (0.00-0.68); EOSINOPHILS PERCENT AUTO 1 % (0-6); Hematocrit 41.7 % (37.0-53.0); Hemoglobin 12.9 g/dL (13.5-17.5); IMMATURE GRAN ABSOLUTE AUTO 0.03 K/mm3 (0.00-0.10); IMMATURE GRAN PERCENT AUTO 0 % (0-1); LYMPHOCYTES ABSOLUTE AUTO 1.46 K/mm3 (0.84-5.20); LYMPHOCYTES PERCENT AUTO 19 % (21-46); MONOCYTES ABSOLUTE AUTO 0.67 K/mm3 (0.16-1.47); MONOCYTES PERCENT AUTO 9 % (4-13); Mean Corpuscular HGB 25.7 pg (26.0-34.0); Mean Corpuscular HGB Conc 30.9 g/dL (31.5-36.5); Mean Corpuscular Volume 83 fL (80-100); NEUTROPHILS ABSOLUTE AUTO 5.52 K/mm3 (1.96-9.15); NEUTROPHILS PERCENT AUTO 71 % (41-73); Platelet Count 285 K/mm3 (150-400); RDW Coefficient Variation 14.9 % (11.7-14.2); Red Blood Cell Count 5.02 M/mm3 (4.30-5.90); White Blood Cell Count 7.77 K/mm3 (4.00-11.30)
[2019-10-25 17:24] LABS: Albumin, Blood 3.8 g/dL (3.4-5.0); Albumin/Globulin Ratio 0.9 (0.8-1.8); Bilirubin, Total 0.5 mg/dL (0.1-1.0); Bun/Creatinine Ratio 14.3 (12.0-20.0); Calcium, Blood 9.1 mg/dL (8.5-10.1); Creatinine, Blood 1.26 mg/dL (0.60-1.20); Globulin, Blood 4.4 g/dL (2.2-4.0); Potassium, Blood 4.2 mmol/L (3.5-5.5); Total Protein, Blood 8.2 g/dL (6.4-8.2); Troponin I 0.213 ng/mL (0.000-0.040)
[2019-10-25 20:43] LABS: Magnesium, Blood 1.7 mg/dL (1.6-2.4)
[2019-10-25] MEDS ORDERED: NITR.4SL SL (21:27)
--- NOTE | 2019-10-26 06:12 | NUR ---
SHIFT SUMMARY PATIENT ADMITTED TO THE UNIT VIA STRETCHER FROM THE ED. PATIENT IS ALERT AND ORIENTED AND WAS ABLE TO AMBULATE INDEPENDENTLY TO THE BATHROOM WITH HIS CANE. TELEMETRY IN PLACE AND SHOWS PATIENT'S RHYTHM TO BE IN AFIB PER THE PCU BANK ANALYST. IV PATENT AND FLUSHED. BED IN LOWEST POSITION WITH WHEELS LOCKED. CALL LIGHT WITHIN REACH. REPORT GIVEN TO THIERRY VALDOVINOS.
[2019-10-26] MEDS ORDERED: TAMS.4ER PO (11:34)
--- NOTE | 2019-10-26 13:28 | NUR ---
pt discharged home. [facility] no new meds to educate on. pt dressed himself. iv removed prior to dc. pt instructed to follow up with pcp
== END 2019-10-26 12:33 | disposition home or self-care (01) ==
LOC: ER 16:18 → MEDS 16:19 → ENPENDDIS 10-26 10:00 → MEDS 10-26 12:33
PROVIDERS: Physician Assistant; ADMIT Family Medicine
DX: I25.119 Atherosclerotic heart disease of native coronary artery with unspecified angina pectoris (principal); I11.0 Hypertensive heart disease with heart failure; I50.22 Chronic systolic (congestive) heart failure; I48.21 Permanent atrial fibrillation; G47.33 Obstructive sleep apnea (adult) (pediatric); Z95.5 Presence of coronary angioplasty implant and graft; Z79.01 Long term (current) use of anticoagulants; E11.9 Type 2 diabetes mellitus without complications; E78.5 Hyperlipidemia, unspecified; Z79.899 Other long term (current) drug therapy; Z79.84 Long term (current) use of oral hypoglycemic drugs; Z99.89 Dependence on other enabling machines and devices; J44.9 Chronic obstructive pulmonary disease, unspecified; Z88.5 Allergy status to narcotic agent; Z88.8 Allergy status to other drugs, medicaments and biological substances
CPT/HCPCS: 36415; 71046; 80053; 82947; 83735; 83880; 84484; 85025; 93005; 93010; 94660; 99285-25; A9270; A9270-GY; G0378

== ENCOUNTER 2019-11-23 08:46 | Day surgery (SDC) | payer MEDICARE, OTHER ==
[~2019-11-23] VITALS: Ht 180.3 cm; Wt 109.0 kg
[2019-11-23] MEDS ORDERED: Isosorbide Mono30 MG (09:48)
[2019-11-23] MEDS ORDERED: EZET10 (09:49)
--- NOTE | 2019-11-23 12:42 | NUR ---
COBAN REMOVED ON LEFT BRACHIAL. SMALL AMOUNT OF BLOOD ON JOCY. TEGADERM APPLIED.
--- NOTE | 2019-11-23 14:10 | NUR ---
2 CC REMOVED FROM TR BAND. NO BLEEDING AT SITE. LEFT BRACHIAL DRESSING/ SITE UNCHANGED.
--- NOTE | 2019-11-23 14:20 | NUR ---
ADDITIONAL 4 CC AIRE REMOVED FROM TR BAND. SITE BLEEDING. 4 CC AIR INSTILLED. NO FURTHER BLEEDING.
--- NOTE | 2019-11-23 14:56 | NUR ---
DR. MCKEON here to discuss RESULTS.
--- NOTE | 2019-11-23 15:05 | NUR ---
2 CC AIR REMOVED NO BLEEDING AT SITE.
--- NOTE | 2019-11-23 15:13 | NUR ---
ADDITIONAL 2 CC AIR REMOVED FROM TR BAND.
--- NOTE | 2019-11-23 15:24 | NUR ---
REMAINDER OF AIR REMOVED FROM TR BAND. NO BLEEDING AT SITE.
--- NOTE | 2019-11-23 16:17 | NUR ---
AMBULATED TO BATHROOM. DRESSING FOR DISCHARGE. TOLERATED WELL. NO BLEEDING AT SITE.
--- NOTE | 2019-11-23 16:28 | NUR ---
TR BAND REMOVED. POLYMEM, IMMOBILIZER AND SLING APPLIED.
--- NOTE | 2019-11-23 16:28 | NUR ---
IV REMOVED INTACT. 2X2, COBAN AND MANUAL PRESSURE APPLIED.
--- NOTE | 2019-11-23 16:38 | NUR ---
DISCHARGED HOME VIA WHEELCHAIR. DRIVING
== END 2019-11-23 17:06 | disposition home or self-care (01) ==
LOC: MHTC 08:46
PROC: B201YZZ Plain Radiography of Multiple Coronary Arteries using Other Contrast (ICD-10-PCS; principal; 2019-11-23)
PROC: 4A023N8 Measurement of Cardiac Sampling and Pressure, Bilateral, Percutaneous Approach (ICD-10-PCS; principal; 2019-11-23)
DX: I25.118 Atherosclerotic heart disease of native coronary artery with other forms of angina pectoris (principal); I25.718 Atherosclerosis of autologous vein coronary artery bypass graft(s) with other forms of angina pectoris; I11.0 Hypertensive heart disease with heart failure; I25.82 Chronic total occlusion of coronary artery; I50.9 Heart failure, unspecified; T82.855A Stenosis of coronary artery stent, initial encounter; Y71.2 Prosthetic and other implants, materials and accessory cardiovascular devices associated with adverse incidents; E66.9 Obesity, unspecified; E11.51 Type 2 diabetes mellitus with diabetic peripheral angiopathy without gangrene; E11.40 Type 2 diabetes mellitus with diabetic neuropathy, unspecified; G47.33 Obstructive sleep apnea (adult) (pediatric); I48.0 Paroxysmal atrial fibrillation; J44.9 Chronic obstructive pulmonary disease, unspecified; I25.5 Ischemic cardiomyopathy; E78.5 Hyperlipidemia, unspecified; Z88.5 Allergy status to narcotic agent; Z88.8 Allergy status to other drugs, medicaments and biological substances; Z91.018 Allergy to other foods; Z87.891 Personal history of nicotine dependence; Z79.4 Long term (current) use of insulin; Z79.82 Long term (current) use of aspirin; Z79.899 Other long term (current) drug therapy; Z79.01 Long term (current) use of anticoagulants; Z68.33 Body mass index [BMI] 33.0-33.9, adult
CPT/HCPCS: 76937; 82947; 85347; 93461; 93571; 99152; 99153; C1769; C1887; C1894; J0153; J1644; J2250; J3010; J7030; Q9967

== ENCOUNTER 2020-05-20 15:06 | Observation (INO) | payer OTHER, MEDICARE ==
[~2020-05-20] VITALS: Ht 180.3 cm; Wt 108.7 kg
[~2020-05-20 15:06] MED LIST changes: +Isosorbide Mono30 MG PO
[2020-05-20 16:07] LABS: BASOPHILS ABSOLUTE AUTO 0.04 K/mm3 (0.00-0.23); BASOPHILS PERCENT AUTO 1 % (0-2); EOSINOPHILS ABSOLUTE AUTO 0.03 K/mm3 (0.00-0.68); EOSINOPHILS PERCENT AUTO 0 % (0-6); Hematocrit 40.6 % (37.0-53.0); Hemoglobin 12.9 g/dL (13.5-17.5); IMMATURE GRAN ABSOLUTE AUTO 0.03 K/mm3 (0.00-0.10); IMMATURE GRAN PERCENT AUTO 0 % (0-1); LYMPHOCYTES ABSOLUTE AUTO 1.51 K/mm3 (0.84-5.20); LYMPHOCYTES PERCENT AUTO 20 % (21-46); MONOCYTES ABSOLUTE AUTO 0.61 K/mm3 (0.16-1.47); MONOCYTES PERCENT AUTO 8 % (4-13); Mean Corpuscular HGB Conc 31.8 g/dL (31.5-36.5); Mean Corpuscular Volume 91 fL (80-100); Mean Platelet Volume 10.8 fL (9.1-12.4); NEUTROPHILS ABSOLUTE AUTO 5.41 K/mm3 (1.96-9.15); NEUTROPHILS PERCENT AUTO 71 % (41-73); Platelet Count 223 K/mm3 (150-400); RDW Coefficient Variation 13.7 % (11.7-14.2); RDW Standard Deviation 46.4 fL (35.1-46.3); Red Blood Cell Count 4.45 M/mm3 (4.30-5.90); White Blood Cell Count 7.63 K/mm3 (4.00-11.30)
[2020-05-20 16:22] LABS: Alanine Aminotransfer (ALT/SGP 28 U/L (12-78); Albumin, Blood 3.5 g/dL (3.4-5.0); Albumin/Globulin Ratio 0.9 (0.8-1.8); Alk Phos 60 U/L (50-136); Anion Gap 6 mmol/L (6-16); Aspartate Aminotrans (AST/SGOT 22 U/L (12-37); Bilirubin, Total 0.6 mg/dL (0.1-1.0); Blood Urea Nitrogen 13 mg/dL (8-24); Bun/Creatinine Ratio 11.3 (12.0-20.0); CO2, Blood 28 mmol/L (21-32); Calcium, Blood 8.7 mg/dL (8.5-10.1); Chloride, Blood 104 mmol/L (98-108); Creatinine, Blood 1.15 mg/dL (0.60-1.20); Globulin, Blood 4.1 g/dL (2.2-4.0); Glomerular Filtration Rate >60 (60-); Glucose, Blood 143 mg/dL (70-99); Sodium, Blood 138 mmol/L (136-145); Total Protein, Blood 7.6 g/dL (6.4-8.2); Troponin I 0.224 ng/mL (0.000-0.040)
[2020-05-21 04:37] LABS: BASOPHILS ABSOLUTE AUTO 0.03 K/mm3 (0.00-0.23); BASOPHILS PERCENT AUTO 0 % (0-2); EOSINOPHILS ABSOLUTE AUTO 0.04 K/mm3 (0.00-0.68); EOSINOPHILS PERCENT AUTO 1 % (0-6); Hematocrit 37.9 % (37.0-53.0); Hemoglobin 12.3 g/dL (13.5-17.5); IMMATURE GRAN ABSOLUTE AUTO 0.02 K/mm3 (0.00-0.10); IMMATURE GRAN PERCENT AUTO 0 % (0-1); LYMPHOCYTES ABSOLUTE AUTO 1.89 K/mm3 (0.84-5.20); LYMPHOCYTES PERCENT AUTO 26 % (21-46); MONOCYTES ABSOLUTE AUTO 0.72 K/mm3 (0.16-1.47); MONOCYTES PERCENT AUTO 10 % (4-13); Mean Corpuscular HGB 29.4 pg (26.0-34.0); Mean Corpuscular HGB Conc 32.5 g/dL (31.5-36.5); Mean Corpuscular Volume 91 fL (80-100); NEUTROPHILS ABSOLUTE AUTO 4.65 K/mm3 (1.96-9.15); NEUTROPHILS PERCENT AUTO 63 % (41-73); Platelet Count 203 K/mm3 (150-400); RDW Coefficient Variation 13.8 % (11.7-14.2); Red Blood Cell Count 4.19 M/mm3 (4.30-5.90); White Blood Cell Count 7.35 K/mm3 (4.00-11.30)
[2020-05-21 05:02] LABS: Anion Gap 9 mmol/L (6-16); Blood Urea Nitrogen 13 mg/dL (8-24); Bun/Creatinine Ratio 11.8 (12.0-20.0); CO2, Blood 28 mmol/L (21-32); Calcium, Blood 8.4 mg/dL (8.5-10.1); Chloride, Blood 104 mmol/L (98-108); Glomerular Filtration Rate >60 (60-); Glucose, Blood 122 mg/dL (70-99); Potassium, Blood 3.5 mmol/L (3.5-5.5); Sodium, Blood 141 mmol/L (136-145); Troponin I 0.211 ng/mL (0.000-0.040)
[2020-05-21] MEDS ORDERED: FERSU300 PO (23:46)
[2020-05-22 06:41] LABS: Anion Gap 10 mmol/L (6-16); Blood Urea Nitrogen 12 mg/dL (8-24); CO2, Blood 25 mmol/L (21-32); Calcium, Blood 8.9 mg/dL (8.5-10.1); Chloride, Blood 105 mmol/L (98-108); Glomerular Filtration Rate >60 (60-); Glucose, Blood 144 mg/dL (70-99); Potassium, Blood 3.5 mmol/L (3.5-5.5); Sodium, Blood 140 mmol/L (136-145)
== END 2020-05-22 12:08 | disposition home or self-care (01) ==
LOC: ER 15:06 → PCU 15:07 → MEDS 05-21 16:09
PROVIDERS: Emergency Medicine; Internal Medicine; Nurse Practitioner Acute Care; ADMIT Internal Medicine
DX: I11.0 Hypertensive heart disease with heart failure (principal); I50.23 Acute on chronic systolic (congestive) heart failure; I48.91 Unspecified atrial fibrillation; I48.92 Unspecified atrial flutter; R53.1 Weakness; I25.2 Old myocardial infarction; I25.10 Atherosclerotic heart disease of native coronary artery without angina pectoris; E11.9 Type 2 diabetes mellitus without complications; I25.5 Ischemic cardiomyopathy; N40.0 Benign prostatic hyperplasia without lower urinary tract symptoms; G47.33 Obstructive sleep apnea (adult) (pediatric); J44.9 Chronic obstructive pulmonary disease, unspecified; E66.9 Obesity, unspecified; R77.8 Other specified abnormalities of plasma proteins; Z79.1 Long term (current) use of non-steroidal anti-inflammatories (NSAID); Z95.5 Presence of coronary angioplasty implant and graft; Z87.891 Personal history of nicotine dependence; Z86.73 Personal history of transient ischemic attack (TIA), and cerebral infarction without residual deficits; Z79.899 Other long term (current) drug therapy; Z88.5 Allergy status to narcotic agent; Z88.8 Allergy status to other drugs, medicaments and biological substances; Z79.01 Long term (current) use of anticoagulants; Z91.018 Allergy to other foods; Z79.84 Long term (current) use of oral hypoglycemic drugs; Z68.33 Body mass index [BMI] 33.0-33.9, adult
CPT/HCPCS: 36415; 51703; 71046; 80048; 80053; 82947; 83735; 83880; 84100; 84484; 85025; 85379; 93005; 93010; 94760; 97110; 97161; 97530; A9270; A9270-GY

== ENCOUNTER 2020-07-01 11:43 | Emergency (ER) | payer OTHER, MEDICARE ==
[~2020-07-01] VITALS: Ht 180.3 cm; Wt 108.0 kg
[~2020-07-01 11:43] MED LIST changes: +FERSU300 PO
[2020-07-01 12:13] LABS: BASOPHILS ABSOLUTE AUTO 0.04 K/mm3 (0.00-0.23); BASOPHILS PERCENT AUTO 1 % (0-2); EOSINOPHILS ABSOLUTE AUTO 0.03 K/mm3 (0.00-0.68); EOSINOPHILS PERCENT AUTO 0 % (0-6); Hematocrit 42.6 % (37.0-53.0); IMMATURE GRAN ABSOLUTE AUTO 0.03 K/mm3 (0.00-0.10); IMMATURE GRAN PERCENT AUTO 0 % (0-1); LYMPHOCYTES ABSOLUTE AUTO 1.32 K/mm3 (0.84-5.20); LYMPHOCYTES PERCENT AUTO 19 % (21-46); MONOCYTES ABSOLUTE AUTO 0.68 K/mm3 (0.16-1.47); MONOCYTES PERCENT AUTO 10 % (4-13); Mean Corpuscular HGB 29.4 pg (26.0-34.0); Mean Corpuscular HGB Conc 32.9 g/dL (31.5-36.5); Mean Corpuscular Volume 90 fL (80-100); Mean Platelet Volume 10.9 fL (9.1-12.4); NEUTROPHILS ABSOLUTE AUTO 4.69 K/mm3 (1.96-9.15); NEUTROPHILS PERCENT AUTO 69 % (41-73); Platelet Count 247 K/mm3 (150-400); RDW Coefficient Variation 13.9 % (11.7-14.2); RDW Standard Deviation 45.6 fL (35.1-46.3); Red Blood Cell Count 4.76 M/mm3 (4.30-5.90); White Blood Cell Count 6.79 K/mm3 (4.00-11.30)
[2020-07-01 12:38] LABS: Alanine Aminotransfer (ALT/SGP 28 U/L (12-78); Albumin, Blood 3.8 g/dL (3.4-5.0); Albumin/Globulin Ratio 0.9 (0.8-1.8); Alk Phos 65 U/L (50-136); Anion Gap 8 mmol/L (6-16); Aspartate Aminotrans (AST/SGOT 26 U/L (12-37); Bilirubin, Total 0.7 mg/dL (0.1-1.0); Blood Urea Nitrogen 16 mg/dL (8-24); Bun/Creatinine Ratio 15.1 (12.0-20.0); CO2, Blood 25 mmol/L (21-32); Calcium, Blood 8.7 mg/dL (8.5-10.1); Chloride, Blood 105 mmol/L (98-108); Creatinine, Blood 1.06 mg/dL (0.60-1.20); Globulin, Blood 4.1 g/dL (2.2-4.0); Glomerular Filtration Rate >60 (60-); Glucose, Blood 154 mg/dL (70-99); Potassium, Blood 4.2 mmol/L (3.5-5.5); Sodium, Blood 138 mmol/L (136-145); Total Protein, Blood 7.9 g/dL (6.4-8.2); Troponin I 0.246 ng/mL (0.000-0.040)
== END 2020-07-01 15:01 | disposition home or self-care (01) ==
LOC: ER 11:43
PROVIDERS: Physician Assistant
DX: R00.2 Palpitations (principal); R06.00 Dyspnea, unspecified; I48.91 Unspecified atrial fibrillation; I25.2 Old myocardial infarction; I11.0 Hypertensive heart disease with heart failure; I50.9 Heart failure, unspecified; E11.9 Type 2 diabetes mellitus without complications; I25.10 Atherosclerotic heart disease of native coronary artery without angina pectoris; Z79.899 Other long term (current) drug therapy; Z79.84 Long term (current) use of oral hypoglycemic drugs; Z79.02 Long term (current) use of antithrombotics/antiplatelets; Z88.5 Allergy status to narcotic agent; Z88.8 Allergy status to other drugs, medicaments and biological substances
CPT/HCPCS: 36415; 71046; 80053; 84484; 85025; 93005; 93010; 99285-25

== ENCOUNTER 2021-04-24 10:24 | Inpatient (IN) | payer OTHER ==
[~2021-04-24] VITALS: Ht 180.3 cm; Wt 112.1 kg
[2021-04-24 11:10] LABS: BASOPHILS ABSOLUTE AUTO 0.03 K/mm3 (0.00-0.23); BASOPHILS PERCENT AUTO 0 % (0-2); EOSINOPHILS ABSOLUTE AUTO 0.02 K/mm3 (0.00-0.68); EOSINOPHILS PERCENT AUTO 0 % (0-6); Hematocrit 35.9 % (37.0-53.0); Hemoglobin 11.1 g/dL (13.5-17.5); IMMATURE GRAN ABSOLUTE AUTO 0.07 K/mm3 (0.00-0.10); IMMATURE GRAN PERCENT AUTO 1 % (0-1); LYMPHOCYTES ABSOLUTE AUTO 0.62 K/mm3 (0.84-5.20); LYMPHOCYTES PERCENT AUTO 4 % (21-46); MONOCYTES ABSOLUTE AUTO 0.99 K/mm3 (0.16-1.47); MONOCYTES PERCENT AUTO 6 % (4-13); Mean Corpuscular HGB 28.5 pg (26.0-34.0); Mean Corpuscular HGB Conc 30.9 g/dL (31.5-36.5); Mean Corpuscular Volume 92 fL (80-100); Mean Platelet Volume 10.9 fL (9.1-12.4); NEUTROPHILS ABSOLUTE AUTO 13.79 K/mm3 (1.96-9.15); NEUTROPHILS PERCENT AUTO 89 % (41-73); Platelet Count 211 K/mm3 (150-400); RDW Coefficient Variation 15.2 % (11.7-14.2); RDW Standard Deviation 50.8 fL (35.1-46.3); White Blood Cell Count 15.52 K/mm3 (4.00-11.30)
[2021-04-24 11:21] LABS: Source, Urine Catheter
[2021-04-24 11:24] LABS: Albumin, Blood 3.2 g/dL (3.4-5.0); Albumin/Globulin Ratio 0.7 (0.8-1.8); Bilirubin, Total 1.3 mg/dL (0.1-1.0); Calcium, Blood 9.3 mg/dL (8.5-10.1); Creatinine, Blood 1.31 mg/dL (0.60-1.20); Globulin, Blood 4.3 g/dL (2.2-4.0); Potassium, Blood 4.3 mmol/L (3.5-5.5); Total Protein, Blood 7.5 g/dL (6.4-8.2); Troponin I 0.184 ng/mL (0.000-0.040)
[2021-04-24 11:59] LABS: Appearance, Urine Cloudy (Clear); Bilirubin, Urine Neg (Neg); Blood, Urine 5+ (Neg); Color, Urine Yellow (P-Yellow); Glucose Qualitative, Urine Neg (Neg); Ketones, Urine Neg (Neg); Leukocyte Esterase, Urine 3+ (Neg); Nitrite, Urine Neg (Neg); Protein, Urine 3+ (Neg); Specific Gravity, Urine 1.015 (1.003-1.022); Urobilinogen, Urine NORM (Normal)
[2021-04-24 12:12] LABS: Bacteria Many /hpf; Red Blood Cells, Urine 25-50 /hpf (0-2); Squamous Epithelial Cells Mod /hpf (Few)
[2021-04-24 12:13] LABS: Amorphous Heavy (0-Heavy)
--- NOTE | 2021-04-24 19:38 | NUR ---
PCU ADMIT / SHIFT SUMMARY PT BROUGHT TO PCU-02 BY АЛЕКСАНДР FROM ER @ APPROX 1700. PT A&O X4, ABLE TO STAND & WEAKLY TRANSFER FROM [facility] TO U BED HOLDING ONTO THE BED, REFUSING HELP FROM STAFF. PT COUNCIL, WEARING BILAT HEARING AIDS. GLASSES ON. PT VSS. SPO2 > 92% ON 3L NC. HOME CPAP W/ PT AT BEDSIDE TO BE ASSESSED BY RT. FLORES CATH PATENT & DRAINING. PT REPORTS SELF CATHING AT HOME, FLORES CATH INSERTED IN ER. REPORT GIVEN TO PLACER MINER RN.
[2021-04-25 04:04] LABS: Hematocrit 31.2 % (37.0-53.0); Hemoglobin 9.9 g/dL (13.5-17.5); Mean Corpuscular HGB 28.9 pg (26.0-34.0); Mean Corpuscular HGB Conc 31.7 g/dL (31.5-36.5); Mean Corpuscular Volume 91 fL (80-100); Mean Platelet Volume 10.9 fL (9.1-12.4); Platelet Count 164 K/mm3 (150-400); RDW Coefficient Variation 15.5 % (11.7-14.2); RDW Standard Deviation 50.5 fL (35.1-46.3); Red Blood Cell Count 3.43 M/mm3 (4.30-5.90); White Blood Cell Count 15.14 K/mm3 (4.00-11.30)
[2021-04-25 04:32] LABS: Bun/Creatinine Ratio 17.6 (12.0-20.0); Calcium, Blood 8.7 mg/dL (8.5-10.1); Creatinine, Blood 1.59 mg/dL (0.60-1.20); Potassium, Blood 4.1 mmol/L (3.5-5.5)
--- NOTE | 2021-04-25 05:21 | NUR ---
SHIFT SUMMARY PT ALERT AND ORIENTED. PT IS VERY HARD OF HEARING. THERE HAVE BEEN NO ACUTE CHANGES T/O SHIFT. VITAL SIGNS HAVE BEEN STABLE AND HAS BEEN ON 3L NC AND CURRENTLY ON HOME CPAP WITH 3L BLEED IN WITH SATS ABOVE 92%. PT DENIES CHEST PAIN. FLORES IS DRAINING TO GRAVITY WITH DANIEL COLOR URINE. CALL LIGHT IS WITHIN REACH. WILL CONTINUE TO MONITOR.
--- NOTE | 2021-04-25 09:51 | NUR ---
CARE ASSUMPTION THIS RN ASSUMED CARE FROM FRANCES RN AT 0700. PATIENT IS A/OX4, BUT HEARD OF HEARING, HEARING AIDES AT BEDSIDE. PATIENT GLASSES AT BEDSIDE. VSS. MD IN TO SEE PATIENT THIS MORNING AND PATIENT IS MED STATUS NO TELE. PATIENT REPORTS NO CHEST PAIN, PAIN, OR SOB. CALL LIGHT WITHIN REACH AND BED IN LOWEST POSITION WILL CONTINUE TO MONITOR AND PROVIDE CARE UNTIL HAND OFF WITH MED RN.
--- NOTE | 2021-04-25 10:15 | NUR ---
REPORT TO MED RN THIS RN GAVE REPORT TO RN AND PATIENT TRANSFERED TO NEW ROOM WITH BELONGINGS AND WENT BY WHEELCHAIR.
--- NOTE | 2021-04-25 16:17 | NUR ---
CALL PLACED TO PROVIDER ABOUT PATIENT HOME MED. LEFT VOICEMAIL. AWAITING FOR PHONE CALL
--- NOTE | 2021-04-25 19:28 | NUR ---
PT A/O X4. VITALS STABLE PT IS HARD OF HEARING. PT WEARS CPAP FROM HOME NEEDED PT DENIES DISCOMFORT. FLORES CARE PROVIDED. REPORT GIVEN TO ODD PIECE CHECKER NURSE
--- NOTE | 2021-04-26 06:23 | NUR ---
PATIENT IS A7O X4. AMBULATES WITH A WALKER AND STANDY ASSIT OF ONE. HIS GAIT IS STADY BUT HE IS WEAK. PATIENT IS A DNR BUT HIS ARM BAND IS IN HIS BEDSIDE TABLE BECAUSE HE DOES NOT WANT HIS TO BE MADE AWARE. PATIENT HAS MEDICATIONS AT THE BEDSIDE THAT NEED TO BE SENT HOME WITH HIS .
[2021-04-26 08:40] LABS: Hematocrit 34.1 % (37.0-53.0); Mean Corpuscular HGB 29.2 pg (26.0-34.0); Mean Corpuscular HGB Conc 32.3 g/dL (31.5-36.5); Mean Corpuscular Volume 91 fL (80-100); Mean Platelet Volume 11.3 fL (9.1-12.4); Platelet Count 211 K/mm3 (150-400); RDW Coefficient Variation 15.4 % (11.7-14.2); RDW Standard Deviation 50.4 fL (35.1-46.3); Red Blood Cell Count 3.77 M/mm3 (4.30-5.90); White Blood Cell Count 15.66 K/mm3 (4.00-11.30)
[2021-04-26 08:58] LABS: Bun/Creatinine Ratio 18.8 (12.0-20.0); Creatinine, Blood 1.49 mg/dL (0.60-1.20); Potassium, Blood 4.2 mmol/L (3.5-5.5)
[2021-04-26] MEDS ORDERED: AMOCLA875 PO (18:02)
[2021-04-26] MEDS ORDERED: VISBIOME 112.51 EACH PO (18:03)
--- NOTE | 2021-04-26 18:42 | NUR ---
DISCHARGE SUMMARY PT DISCHARGE THIS SHIFT TO HOME. PT AAOX4, ABLE TO MAKE NEEDS KNOWN, PLEASANT AND COOPERATIVE TO CARE. PT REQUIRES SBA W/ FWW WHEN AMBULATING. FLORES DC TODAY ORDERED, PT TOLERATED WELL. BLADDER SCAN 89 PRIOR TO DC, PT DENIES ANY URINARY DISCOMFORT. NOTIFIED DR. NYE OF BLADDER SCAN RESULTS, NO STRAIGHT CATH NEEDED PER PROVIDER. PT VERBALIZED UNDERSTANDING OF DISCHARGE ORDERS AND EDUCATION. NO ISSUES OR CONCERNS NOTED FROM PATIENT PRIOR TO DISCHARGE. IV LINE DISCONTINUED PRIOR TO DC. DISCHARGE PAPERWORK GIVEN TO PT PRIOR TO DC.
== END 2021-04-26 18:43 | disposition home or self-care (01) | DRG 698 ==
LOC: ER 10:24 → ERHOLD 10:25 → PCU 16:55 → MEDS 04-25 10:15
PROVIDERS: Emergency Medicine; Hospitalist; Nurse Practitioner Acute Care; ADMIT Family Medicine
DX: T83.518A Infection and inflammatory reaction due to other urinary catheter, initial encounter (principal); R65.20 Severe sepsis without septic shock; I50.22 Chronic systolic (congestive) heart failure; N39.0 Urinary tract infection, site not specified; N17.9 Acute kidney failure, unspecified; E87.1 Hypo-osmolality and hyponatremia; I24.8 Other forms of acute ischemic heart disease; I48.91 Unspecified atrial fibrillation; E11.9 Type 2 diabetes mellitus without complications; Z66 Do not resuscitate; I25.5 Ischemic cardiomyopathy; I25.10 Atherosclerotic heart disease of native coronary artery without angina pectoris; I11.0 Hypertensive heart disease with heart failure; N40.0 Benign prostatic hyperplasia without lower urinary tract symptoms; G47.33 Obstructive sleep apnea (adult) (pediatric); F32.A Depression, unspecified; D63.8 Anemia in other chronic diseases classified elsewhere; F41.9 Anxiety disorder, unspecified; E66.01 Morbid (severe) obesity due to excess calories; B95.2 Enterococcus as the cause of diseases classified elsewhere; I35.0 Nonrheumatic aortic (valve) stenosis; J44.9 Chronic obstructive pulmonary disease, unspecified; I25.2 Old myocardial infarction; Z86.73 Personal history of transient ischemic attack (TIA), and cerebral infarction without residual deficits; Z88.5 Allergy status to narcotic agent; Z88.8 Allergy status to other drugs, medicaments and biological substances; Z91.048 Other nonmedicinal substance allergy status; Z91.018 Allergy to other foods; Z95.1 Presence of aortocoronary bypass graft; Z98.890 Other specified postprocedural states; Z95.5 Presence of coronary angioplasty implant and graft; Z90.79 Acquired absence of other genital organ(s); Y84.6 Urinary catheterization as the cause of abnormal reaction of the patient, or of later complication, without mention of misadventure at the time of the procedure
CPT/HCPCS: 36415; 51702; 71045; 80048; 80053; 81001; 82947; 83880; 84484; 85025; 85027; 87077; 87086; 87186; 93005; 93010; 94760; 96365; 96375; 96376; 99285-25; A9270; G0378; J2405; J2543; J7030; J7050

== ENCOUNTER 2021-08-28 17:34 | Emergency (ER) | payer OTHER, MEDICARE ==
[~2021-08-28] VITALS: Ht 180.3 cm; Wt 110.2 kg
[~2021-08-28 17:34] MED LIST changes: +AMOCLA875 PO; +VISBIOME 112.51 EACH PO
[2021-10-03] MEDS ORDERED: JARDIANCE25 MG PO (10:27)
[2021-10-03] MEDS ORDERED: EZET10 PO (10:29)
[2021-10-03] MEDS ORDERED: FURO40 PO (10:30)
[2021-10-03] MEDS ORDERED: POTCHL20ER PO (10:31)
[2021-10-03] MEDS ORDERED: ARTIFICIAL TEA1 EAC1 BOTHEYES (10:33)
[2021-10-03] MEDS ORDERED: NITR.4SL SL (10:34)
[2021-10-03] MEDS ORDERED: PRED20 PO (11:46)
[2021-10-03] MEDS ORDERED: LEVO750 PO (11:46)
[2021-10-29] MEDS ORDERED: VITAMIN D325 MC3 PO (08:22)
[2021-10-29] MEDS ORDERED: Echinacea80 MG PO (08:23)
== END 2021-08-28 19:12 | disposition home or self-care (01) ==
LOC: ER 17:34
DX: S40.012A Contusion of left shoulder, initial encounter (principal); I48.91 Unspecified atrial fibrillation; I25.2 Old myocardial infarction; I11.0 Hypertensive heart disease with heart failure; I50.9 Heart failure, unspecified; I25.10 Atherosclerotic heart disease of native coronary artery without angina pectoris; J44.9 Chronic obstructive pulmonary disease, unspecified; Z86.73 Personal history of transient ischemic attack (TIA), and cerebral infarction without residual deficits; Z88.5 Allergy status to narcotic agent; Z91.018 Allergy to other foods; Z88.8 Allergy status to other drugs, medicaments and biological substances; Z79.84 Long term (current) use of oral hypoglycemic drugs; Z79.899 Other long term (current) drug therapy; W18.30XA Fall on same level, unspecified, initial encounter
CPT/HCPCS: 73030; 99283-25

== ENCOUNTER 2021-10-03 19:33 | Inpatient (IN) | payer OTHER ==
[~2021-10-03] VITALS: Ht 180.3 cm; Wt 107.5 kg
[~2021-10-03 19:33] MED LIST changes: +ARTIFICIAL TEA1 EAC1; +JARDIANCE25 MG PO; +LEVO750 PO; +POTCHL20ER PO; +PRED20 PO
[2021-10-03 20:37] LABS: Hematocrit 34.9 % (37.0-53.0); Hemoglobin 10.8 g/dL (13.5-17.5); Mean Corpuscular HGB Conc 30.9 g/dL (31.5-36.5); Mean Corpuscular Volume 87 fL (80-100); Platelet Count 197 K/mm3 (150-400); RDW Coefficient Variation 15.9 % (11.7-14.2); RDW Standard Deviation 50.4 fL (35.1-46.3); White Blood Cell Count 19.36 K/mm3 (4.00-11.30)
[2021-10-03 20:55] LABS: Albumin, Blood 3.3 g/dL (3.4-5.0); Albumin/Globulin Ratio 0.9 (0.8-1.8); Bilirubin, Total 1.9 mg/dL (0.1-1.0); Bun/Creatinine Ratio 14.8 (12.0-20.0); Calcium, Blood 8.8 mg/dL (8.5-10.1); Creatinine, Blood 1.49 mg/dL (0.60-1.20); Globulin, Blood 3.7 g/dL (2.2-4.0); Potassium, Blood 4.8 mmol/L (3.5-5.5)
[2021-10-03 20:58] LABS: BAND PERCENT MAN 15 % (0-8); BASOPHILS PERCENT MAN 0 % (0-2); EOSINOPHILS PERCENT MAN 0 % (0-6); LYMPHOCYTES ABSOLUTE MAN 0.19 K/mm3 (0.84-5.20); LYMPHOCYTES PERCENT MAN 1 % (21-46); MONOCYTES ABSOLUTE MAN 0.77 K/mm3 (0.16-1.47); MONOCYTES PERCENT MAN 4 % (4-13); NEUTROPHILS ABSOLUTE MAN 18.39 K/mm3 (1.96-9.15); SEG NEUTROPHILS PERCENT MAN 80 % (41-73); TOTAL CELLS COUNTED 100
[2021-10-04 00:14] LABS: International Normalized Ratio 1.28; Prothrombin Time Results 13.2 Sec (9.7-11.5)
--- NOTE | 2021-10-04 00:50 | NUR ---
CALL TO DR COONEY THIS RN CALLS DR COONEY TO NOTIFY OF BLOOD IN ATTENDS FROM [facility], ORDER TO DC HEPARIN GTT ORDER. NOTIFIED OF CRITICAL VALUES. DR COONEY GIVES OKAY FOR NIGHT MEDS THAT PT HAS NOT HAD YET.
[2021-10-04 05:15] LABS: BASOPHILS ABSOLUTE AUTO 0.03 K/mm3 (0.00-0.23); BASOPHILS PERCENT AUTO 0 % (0-2); EOSINOPHILS ABSOLUTE AUTO 0.08 K/mm3 (0.00-0.68); EOSINOPHILS PERCENT AUTO 1 % (0-6); Hematocrit 33.2 % (37.0-53.0); Hemoglobin 10.3 g/dL (13.5-17.5); IMMATURE GRAN ABSOLUTE AUTO 0.18 K/mm3 (0.00-0.10); IMMATURE GRAN PERCENT AUTO 1 % (0-1); LYMPHOCYTES PERCENT AUTO 4 % (21-46); MONOCYTES ABSOLUTE AUTO 0.97 K/mm3 (0.16-1.47); MONOCYTES PERCENT AUTO 6 % (4-13); Mean Corpuscular HGB 27.2 pg (26.0-34.0); Mean Corpuscular Volume 88 fL (80-100); Mean Platelet Volume 11.1 fL (9.1-12.4); NEUTROPHILS ABSOLUTE AUTO 15.54 K/mm3 (1.96-9.15); NEUTROPHILS PERCENT AUTO 89 % (41-73); Platelet Count 179 K/mm3 (150-400); RDW Standard Deviation 50.3 fL (35.1-46.3); Red Blood Cell Count 3.79 M/mm3 (4.30-5.90)
[2021-10-04 05:29] LABS: Bun/Creatinine Ratio 16.8 (12.0-20.0); Calcium, Blood 8.7 mg/dL (8.5-10.1); Creatinine, Blood 1.43 mg/dL (0.60-1.20); Potassium, Blood 4.4 mmol/L (3.5-5.5)
--- NOTE | 2021-10-04 07:21 | NUR ---
PT SUMMARY PT AOX4 T/O SHIFT. DENIES CP. PT USES CPAP WHILE SLEEPING. SERIAL TROPS REPORTED TO DR COONEY. HEPARIN HELD PER DR COONEY ORDER D/T BLOOD IN PT ATTENDS FROM [facility] FOLLOWING EPISODE OF INCONTINENCE.
--- NOTE | 2021-10-04 18:03 | NUR ---
SHIFT SUMMARY PT HAS BEEN RESTING IN ROOM, SLEEPING OFF AND ON. PT WILL PLACE CPAP ON WHEN THEY FEEL THEY MAY FALL ASLEEP. PT HAS CALLED APPROPRIATELY FOR ASSISTANCE. PT HAS BEEN AN ACTIVE PARTICIPANT IN CARE. PT AND SPOUSE RAISED SOME CONCERNS OVER CURRENT HOSPITAL MEDICATIONS VERSUS HOME MEDICATIONS. THIS RN SPOKE WITH THE PROVIDER AND THE PROVIDER ADDRESSED THE MEDICATION CONCERNS. PT EXPERIENCED AN EPISODE OF NAUSEA IMMEDIATELY FOLLOWING INFUSION OF ANTIBIOTICS. ANTI-EMETICS WERE GIVEN AND PROVIDED MINIMAL RELIEF. VITAL SIGNS STABLE, NO ACUTE CHANGES IN PT CONDITION.
[2021-10-05 03:55] LABS: BASOPHILS ABSOLUTE AUTO 0.02 K/mm3 (0.00-0.23); BASOPHILS PERCENT AUTO 0 % (0-2); EOSINOPHILS ABSOLUTE AUTO 0.01 K/mm3 (0.00-0.68); EOSINOPHILS PERCENT AUTO 0 % (0-6); Hematocrit 34.3 % (37.0-53.0); Hemoglobin 10.4 g/dL (13.5-17.5); Mean Corpuscular HGB 26.9 pg (26.0-34.0); Mean Corpuscular HGB Conc 30.3 g/dL (31.5-36.5); Mean Corpuscular Volume 89 fL (80-100); Mean Platelet Volume 11.1 fL (9.1-12.4); Platelet Count 166 K/mm3 (150-400); RDW Coefficient Variation 16.3 % (11.7-14.2); RDW Standard Deviation 53.1 fL (35.1-46.3); Red Blood Cell Count 3.86 M/mm3 (4.30-5.90); White Blood Cell Count 9.82 K/mm3 (4.00-11.30)
[2021-10-05 03:56] LABS: IMMATURE GRAN ABSOLUTE AUTO 0.05 K/mm3 (0.00-0.10); IMMATURE GRAN PERCENT AUTO 1 % (0-1); LYMPHOCYTES ABSOLUTE AUTO 0.91 K/mm3 (0.84-5.20); LYMPHOCYTES PERCENT AUTO 9 % (21-46); MONOCYTES ABSOLUTE AUTO 0.87 K/mm3 (0.16-1.47); MONOCYTES PERCENT AUTO 9 % (4-13); NEUTROPHILS ABSOLUTE AUTO 7.96 K/mm3 (1.96-9.15); NEUTROPHILS PERCENT AUTO 81 % (41-73)
[2021-10-05 04:10] LABS: Bun/Creatinine Ratio 22.2 (12.0-20.0); Calcium, Blood 8.4 mg/dL (8.5-10.1); Creatinine, Blood 1.35 mg/dL (0.60-1.20); Potassium, Blood 3.7 mmol/L (3.5-5.5)
--- NOTE | 2021-10-05 05:38 | NUR ---
SHIFT SUMMARY PT AOX4. VSS; HEART RATE FROM 80'S - 90'S. SYSTOLIC BLOOD PRESSURE FROM 100'S - 120'S. O2 SATS REMAINED >95% ON 2 L VIA NC. DURING NIGHT, PT USING CPAP - O2 SATS REMAINED >95%. PT DENIES SOB, CHEST PAIN OR CHEST PRESSURE. PT COMPLAINS OF URGENCY OF URINATION, CONDOM CATHETER WAS IN PLACE HOWEVER IT CONTINUED TO BE PULLED OFF. PT AGREED TO WEAR ATTENDS INSTEAD OF PLACING ANOTHER CATHETER. PT RESTED THROUGHOUT THE NIGHT. WILL CONTINUE TO MONITOR AND REPORT TO ONCOMING RN. CALL LIGHT WITHIN REACH AND BED IN LOWEST POSITION.
--- NOTE | 2021-10-05 06:54 | NUR ---
DIAL SCREW ASSEMBLER DOCUMENTATION THIS RN REVIEWED DIAL SCREW ASSEMBLER DOCUMENTATION. THIS RN AGREES WITH ASSESSMENTS AND ALL OTHER CHARTING.
--- NOTE | 2021-10-05 11:17 | NUR ---
Patient is sitting on a chair and alert. Spouse, Maricruz, is bedside. Patient tells me about his medical issues and then they share about their life together, how they met, their [employer]ze beliefs and pt's life growing up. Pt voices no concerns and has no signs of spiritual distress but benefits greatly by spiritual care interventions of therapeutic listening, conducting a life review, exploring latter day beliefs and providing gentle encouragement and a calming presence. Pt and Maricruz show signs of an elevated mood.
--- NOTE | 2021-10-05 17:30 | NUR ---
SHIFT SUMMARY; ASSUMED CARE AT 0700. A/A/OX4 DURING SHIFT. 2L O2 VIA NC. DYSPNEA ON EXERTION. AMBULATES WITH WALKER AND STANDBY ASSIST. RECLINER CHAIR FOR SEVERAL HOURS. REPOSITIONS SELF IN BED, INSULIN COVERAGE PER EMAR. STATUS CHANGED TO MEDICAL. SEVERAL INCONINANT VOIDS, VSS, WILL CONTINUE TO MONITOR AND TREAT UNTIL CHANGE OF SHIFT.
--- NOTE | 2021-10-06 05:04 | NUR ---
SHIFT SUMMARY PT AOX4. VSS; SR W/HEART RATE IN 90'S. O2 SATS >96% ON 2 L. CPAP AT BEDSIDE, PT USING THROUGHOUT NIGHT, OZ SATS >96%. PT STATES HE "FEELS A LOT BETTER TODAY". PT DENIES SOB, CHEST PAIN OR CHEST PRESSURE. PT UP TO BSC OR TO USE URINAL W/ FWW AND 1 PERSON ASSIST. PT TOLERATES WELL, ALTHOUGH EXPERIENCES SOB WITH EXERTION. PT ABLE TO RECOVER WELL. NO ACUTE CHANGES OR CONCERN IN PT STATUS. WILL CONTINUE TO MONITOR. BED IN LOWEST POSITION AND CALL LIGHT WITHIN REACH.
[2021-10-06 05:54] LABS: BASOPHILS ABSOLUTE AUTO 0.03 K/mm3 (0.00-0.23); BASOPHILS PERCENT AUTO 0 % (0-2); EOSINOPHILS ABSOLUTE AUTO 0.04 K/mm3 (0.00-0.68); EOSINOPHILS PERCENT AUTO 1 % (0-6); Hematocrit 32.2 % (37.0-53.0); Hemoglobin 9.9 g/dL (13.5-17.5); IMMATURE GRAN ABSOLUTE AUTO 0.07 K/mm3 (0.00-0.10); IMMATURE GRAN PERCENT AUTO 1 % (0-1); LYMPHOCYTES PERCENT AUTO 13 % (21-46); MONOCYTES ABSOLUTE AUTO 0.68 K/mm3 (0.16-1.47); MONOCYTES PERCENT AUTO 10 % (4-13); Mean Corpuscular HGB 26.8 pg (26.0-34.0); Mean Corpuscular HGB Conc 30.7 g/dL (31.5-36.5); Mean Corpuscular Volume 87 fL (80-100); NEUTROPHILS PERCENT AUTO 75 % (41-73); Platelet Count 180 K/mm3 (150-400); RDW Coefficient Variation 16.3 % (11.7-14.2); RDW Standard Deviation 51.1 fL (35.1-46.3); Red Blood Cell Count 3.69 M/mm3 (4.30-5.90); White Blood Cell Count 6.82 K/mm3 (4.00-11.30)
--- NOTE | 2021-10-06 06:00 | NUR ---
FEATURE WRITER DOCUMENTATION THIS RN HAS REVIEWED THE STUDENT NURSE'S DOCUMENTATION AND THIS RN AGREES WITH ALL CHARTING MADE BY FEATURE WRITER.
[2021-10-06 06:41] LABS: Calcium, Blood 8.7 mg/dL (8.5-10.1); Creatinine, Blood 1.21 mg/dL (0.60-1.20); Potassium, Blood 3.5 mmol/L (3.5-5.5)
--- NOTE | 2021-10-06 08:00 | NUR ---
PT IS A&OX4. YOMBA SHOSHONE. COMMUNICATES NEEDS WELL. PT DENIES PAIN. ECG SHOWS SR WITH BBB. BP STABLE. HOLOSYSTOLIC MURMUR NOTED. NO NOTED EDEMA. LUNGS DIMINISHED TO THE BASES WITH FEW, FINE CRACKLE TO THE RIGHT BASE. SATS>90% ON 2 LITERS NASAL CANULA. PT DENIES GI DISTRESS. PT HAS ATTENDS IN PLACE. INCONTINENT AT TIMES, BUT ATTEMPTS TO USE THE URINAL PRN. SKIN IS PALE, WARM, AND DRY. NO NOTED SKIN BREAKDOWN. PT SITTING UP IT THE CHAIR FEEDING HIMSELF BREAKFAST WITHOUT NOTED DISTRESS. CALL LIGHT WITHIN REACH. ANTICIPATE POSSIBLE DISCHARGE LATER TODAY. EVAL FOR HOME O2 HAS BEEN ORDERED.
[2021-10-06] MEDS ORDERED: SOTO80 PO (08:06)
[2021-10-06] MEDS ORDERED: METF500 PO (08:06)
--- NOTE | 2021-10-06 11:36 | NUR ---
PT AMBULATED WITH PHYSICAL THERAPY AND RESPIRATORY THERAPY. EVAL FOR HOME O2 COMPLETE. PT NOW SITTING AT THE EDGE OF THE BED. HE DENIES COMPLAINTS AND NO NOTED DISTRESS.
--- NOTE | 2021-10-06 13:20 | NUR ---
PT REPORTS THAT HE IS VERY TIRED AFTER AMBULATING WITH PHYSICAL THERAPY AND HIS SHOWER THIS AM. PT REFUSING OT AT THIS TIME. HE REQUESTS TO JUST "SLEEP." REQUEST GRANTED. CALL LIGHT WITHIN REACH.
--- NOTE | 2021-10-06 15:30 | NUR ---
PT HAS BEEN NAPPING THIS AFTERNOON. HE AWAKENS A&OX4 AND HE DENIES COMPLAINTS. 12 LEAD ECG DONE AND QT INTERVAL REVIEWED WITH ORDERING MD. PLAN TO DISCHARGE PT TONIGHT. DANIEL FROM [facility] IS ARRANGING FOR HOME O2.
[2021-10-06] MEDS ORDERED: ONDA4 PO (17:43)
--- NOTE | 2021-10-06 18:45 | NUR ---
REVIEWED DC INSTRUCTIONS WITH PT AND SPOUSE. BOTH VERBALIZING CONCERN THAT NO ANTIBIOTIC HAD BEEN PRESCRIBED. DR. PALM CONTACTED AND CONFIRMED THAT NO ANTIBIOTIC NEEDED-PT HAS COMPLETED 5 DAYS OF ANTIBIOTICS. PT DISCHARGED TO HOME, OUT VIA WHEELCHAIR WITH DISCHARGE INSTRUCTIONS AND BELONGINGS ON HAND.
== END 2021-10-06 19:20 | disposition home or self-care (01) | DRG 871 ==
LOC: ER 19:33 → PCU 22:32
PROVIDERS: Physician Assistant; Student in an Organized Health Care Education/Training Program; ADMIT Family Medicine
PROC: 3E03329 Introduction of Other Anti-infective into Peripheral Vein, Percutaneous Approach (ICD-10-PCS; principal; 2021-10-03)
PROC: 5A09357 Assistance with Respiratory Ventilation, Less than 24 Consecutive Hours, Continuous Positive Airway Pressure (ICD-10-PCS; 2021-10-03)
DX: A41.51 Sepsis due to Escherichia coli [E. coli] (principal); I50.23 Acute on chronic systolic (congestive) heart failure; N39.0 Urinary tract infection, site not specified; N17.9 Acute kidney failure, unspecified; E87.2 Acidosis; I42.9 Cardiomyopathy, unspecified; E87.1 Hypo-osmolality and hyponatremia; I24.8 Other forms of acute ischemic heart disease; R65.20 Severe sepsis without septic shock; E11.22 Type 2 diabetes mellitus with diabetic chronic kidney disease; N18.30 Chronic kidney disease, stage 3 unspecified; I48.91 Unspecified atrial fibrillation; I25.10 Atherosclerotic heart disease of native coronary artery without angina pectoris; G47.33 Obstructive sleep apnea (adult) (pediatric); R06.00 Dyspnea, unspecified; R09.02 Hypoxemia; D72.829 Elevated white blood cell count, unspecified; I35.0 Nonrheumatic aortic (valve) stenosis; R30.0 Dysuria; N40.0 Benign prostatic hyperplasia without lower urinary tract symptoms; D64.9 Anemia, unspecified; I25.2 Old myocardial infarction; Z87.891 Personal history of nicotine dependence; Z99.81 Dependence on supplemental oxygen; Z95.1 Presence of aortocoronary bypass graft; Z95.5 Presence of coronary angioplasty implant and graft; Z98.890 Other specified postprocedural states; Z79.2 Long term (current) use of antibiotics; Z79.01 Long term (current) use of anticoagulants; Z79.52 Long term (current) use of systemic steroids; Z79.899 Other long term (current) drug therapy; Z88.5 Allergy status to narcotic agent; Z91.018 Allergy to other foods; Z88.8 Allergy status to other drugs, medicaments and biological substances; E66.9 Obesity, unspecified; Z68.32 Body mass index [BMI] 32.0-32.9, adult
CPT/HCPCS: 36415; 80048; 80053; 82947; 83036; 83605; 83690; 83880; 84484; 85025; 85610; 85730; 87040; 93005; 93010; 93306; 94660; 94761; 94762; 96365; 96375; 97110; 97116; 97162; 97166; 97530; 99285-25; A9270; J0290; J0696; J1815; J1940; J1956; J2405; J7040

== ENCOUNTER 2022-04-10 00:40 | Emergency (ER) | payer OTHER ==
[~2022-04-10] VITALS: Ht 180.3 cm; Wt 108.4 kg
[~2022-04-10 00:40] MED LIST changes: -ARTIFICIAL TEA1 EAC1; +ARTIFICIAL TEA1 EAC1 BOTHEYES; +Echinacea80 MG PO; +METF500 PO; +ONDA4 PO; +SOTO80 PO; +VITAMIN D325 MC3 PO
== END 2022-04-10 02:13 | disposition home or self-care (01) ==
LOC: ER 00:40
DX: R04.0 Epistaxis (principal); I25.2 Old myocardial infarction; N40.0 Benign prostatic hyperplasia without lower urinary tract symptoms; E11.9 Type 2 diabetes mellitus without complications; I11.0 Hypertensive heart disease with heart failure; I50.9 Heart failure, unspecified; I25.10 Atherosclerotic heart disease of native coronary artery without angina pectoris; J44.9 Chronic obstructive pulmonary disease, unspecified; Z86.73 Personal history of transient ischemic attack (TIA), and cerebral infarction without residual deficits; Z88.5 Allergy status to narcotic agent; Z88.8 Allergy status to other drugs, medicaments and biological substances; Z91.018 Allergy to other foods; Z79.02 Long term (current) use of antithrombotics/antiplatelets; Z79.899 Other long term (current) drug therapy; Z95.1 Presence of aortocoronary bypass graft
CPT/HCPCS: 99283

== ENCOUNTER → 2022-05-19 | Outpatient (CLI) | payer OTHER | END | disposition home or self-care (01) | LOC: LAB SHORT 14:21 | DX: R30.0 Dysuria (principal) | CPT/HCPCS: 87086 ==

== ENCOUNTER 2023-06-13 16:19 | Emergency (ER) | payer MEDICARE ==
[~2023-06-13] VITALS: Ht 180.3 cm; Wt 108.8 kg
[~2023-06-13 16:19] MED LIST changes: +CEPH500 PO
[2023-06-13 16:46] LABS: BASOPHILS ABSOLUTE AUTO 0.04 K/mm3 (0.00-0.23); BASOPHILS PERCENT AUTO 1 % (0-2); EOSINOPHILS ABSOLUTE AUTO 0.06 K/mm3 (0.00-0.68); EOSINOPHILS PERCENT AUTO 1 % (0-6); Hemoglobin 13.7 g/dL (13.5-17.5); IMMATURE GRAN ABSOLUTE AUTO 0.02 K/mm3 (0.00-0.10); IMMATURE GRAN PERCENT AUTO 0 % (0-1); LYMPHOCYTES ABSOLUTE AUTO 1.22 K/mm3 (0.84-5.20); LYMPHOCYTES PERCENT AUTO 16 % (21-46); MONOCYTES ABSOLUTE AUTO 0.63 K/mm3 (0.16-1.47); MONOCYTES PERCENT AUTO 8 % (4-13); Mean Corpuscular HGB 27.9 pg (26.0-34.0); Mean Corpuscular HGB Conc 31.9 g/dL (31.5-36.5); Mean Corpuscular Volume 88 fL (80-100); NEUTROPHILS ABSOLUTE AUTO 5.88 K/mm3 (1.96-9.15); NEUTROPHILS PERCENT AUTO 75 % (41-73); Platelet Count 208 K/mm3 (150-400); RDW Coefficient Variation 17.2 % (11.7-14.2); Red Blood Cell Count 4.91 M/mm3 (4.30-5.90); White Blood Cell Count 7.85 K/mm3 (4.00-11.30)
[2023-06-13 17:18] LABS: Albumin, Blood 3.6 g/dL (3.4-5.0); Albumin/Globulin Ratio 0.9 (0.8-1.8); Bilirubin, Total 0.6 mg/dL (0.1-1.0); Bun/Creatinine Ratio 12.1 (12.0-20.0); Creatinine, Blood 1.32 mg/dL (0.60-1.20); Globulin, Blood 3.8 g/dL (2.2-4.0); Potassium, Blood 4.3 mmol/L (3.5-5.5); Total Protein, Blood 7.4 g/dL (6.4-8.2)
[2023-06-13 18:07] LABS: Source, Urine Clean Catch
[2023-06-13 18:16] LABS: Appearance, Urine Clear (Clear); Bilirubin, Urine Neg (Neg); Blood, Urine Neg (Neg); Color, Urine Yellow (P-Yellow); Glucose Qualitative, Urine Neg (Neg); Ketones, Urine Neg (Neg); Leukocyte Esterase, Urine Neg (Neg); Nitrite, Urine Neg (Neg); Protein, Urine Neg (Neg); Urobilinogen, Urine NORM (Normal)
[2023-06-13 20:15] VITALS: BP 130/71
[2023-06-17] MEDS ORDERED: VITAMIN D31000 UNI1 PO (20:37)
[2023-06-17] MEDS ORDERED: OZEMPIC0.25 MG/02 SC (22:43)
[2023-06-17] MEDS ORDERED: SERT25 PO (22:44)
[2023-06-17] MEDS ORDERED: STIOLTO RESPIMAT4 G1 INH (22:48)
[2023-06-17] MEDS ORDERED: FERSU300 PO (22:49)
[2023-06-18] MEDS ORDERED: CLOP75 PO (16:31)
[2023-06-18] MEDS ORDERED: ASPI81CH PO (16:32)
[2023-06-18] MEDS ORDERED: PANT40 PO (16:32)
== END 2023-06-13 20:25 | disposition home or self-care (01) ==
LOC: ER 16:19
PROVIDERS: Student in an Organized Health Care Education/Training Program
DX: I25.118 Atherosclerotic heart disease of native coronary artery with other forms of angina pectoris (principal); I11.0 Hypertensive heart disease with heart failure; I50.20 Unspecified systolic (congestive) heart failure; I48.91 Unspecified atrial fibrillation; I25.2 Old myocardial infarction; E11.9 Type 2 diabetes mellitus without complications; N40.0 Benign prostatic hyperplasia without lower urinary tract symptoms; G47.33 Obstructive sleep apnea (adult) (pediatric); J44.9 Chronic obstructive pulmonary disease, unspecified; Z88.5 Allergy status to narcotic agent; Z88.8 Allergy status to other drugs, medicaments and biological substances; Z91.018 Allergy to other foods; Z79.899 Other long term (current) drug therapy; Z79.01 Long term (current) use of anticoagulants
CPT/HCPCS: 71046; 80053; 81003; 83880; 84484; 85025; 93005; 93010; 99285-25

== ENCOUNTER 2023-06-25 13:17 | Emergency (ER) | payer OTHER ==
[~2023-06-25] VITALS: Ht 180.3 cm; Wt 107.5 kg
[~2023-06-25 13:17] MED LIST changes: +CLOP75 PO; +OZEMPIC0.25 MG/02 SC; +PANT40 PO; +SERT25 PO; +STIOLTO RESPIMAT4 G1 INH; +VITAMIN D31000 UNI1 PO
[2023-06-25] MEDS ORDERED: Oxymetazoline 0.05% Nasal Relief Spray 15mL BTL ONE (13:35)
== END 2023-06-25 16:02 | disposition home or self-care (01) ==
LOC: ER 13:17
DX: R04.0 Epistaxis (principal); I48.91 Unspecified atrial fibrillation; I25.2 Old myocardial infarction; I11.0 Hypertensive heart disease with heart failure; I50.9 Heart failure, unspecified; E11.9 Type 2 diabetes mellitus without complications; I25.5 Ischemic cardiomyopathy; I25.10 Atherosclerotic heart disease of native coronary artery without angina pectoris; N40.0 Benign prostatic hyperplasia without lower urinary tract symptoms; G47.33 Obstructive sleep apnea (adult) (pediatric); Z88.5 Allergy status to narcotic agent; Z88.8 Allergy status to other drugs, medicaments and biological substances; Z91.018 Allergy to other foods; Z79.899 Other long term (current) drug therapy; Z79.85 Long-term (current) use of injectable non-insulin antidiabetic drugs; Z79.02 Long term (current) use of antithrombotics/antiplatelets; Z79.01 Long term (current) use of anticoagulants; Z79.82 Long term (current) use of aspirin; Z99.89 Dependence on other enabling machines and devices
CPT/HCPCS: 30901; 99283-25; A9270

== ENCOUNTER 2024-09-12 11:31 | Emergency (ER) | payer MEDICARE, OTHER ==
[~2024-09-12] VITALS: Ht 180.3 cm; Wt 103.4 kg
[2024-09-12 12:12] LABS: BASOPHILS ABSOLUTE AUTO 0.03 K/mm3 (0.00-0.23); BASOPHILS PERCENT AUTO 0 % (0-2); EOSINOPHILS ABSOLUTE AUTO 0.02 K/mm3 (0.00-0.68); EOSINOPHILS PERCENT AUTO 0 % (0-6); Hematocrit 41.3 % (37.0-53.0); Hemoglobin 13.1 g/dL (13.5-17.5); IMMATURE GRAN ABSOLUTE AUTO 0.05 K/mm3 (0.00-0.10); IMMATURE GRAN PERCENT AUTO 0 % (0-1); LYMPHOCYTES ABSOLUTE AUTO 0.81 K/mm3 (0.84-5.20); LYMPHOCYTES PERCENT AUTO 7 % (21-46); MONOCYTES ABSOLUTE AUTO 0.97 K/mm3 (0.16-1.47); MONOCYTES PERCENT AUTO 8 % (4-13); Mean Corpuscular HGB 30.4 pg (26.0-34.0); Mean Corpuscular HGB Conc 31.7 g/dL (31.5-36.5); Mean Corpuscular Volume 96 fL (80-100); Mean Platelet Volume 11.1 fL (9.1-12.4); NEUTROPHILS PERCENT AUTO 84 % (41-73); Platelet Count 198 K/mm3 (150-400); RDW Coefficient Variation 14.6 % (11.7-14.2); RDW Standard Deviation 51.1 fL (35.1-46.3); Red Blood Cell Count 4.31 M/mm3 (4.30-5.90); White Blood Cell Count 11.88 K/mm3 (4.00-11.30)
[2024-09-12 12:38] LABS: Albumin, Blood 3.7 g/dL (3.4-5.0); Albumin/Globulin Ratio 1.1 (0.8-1.8); Bilirubin, Total 1.7 mg/dL (0.1-1.0); Bun/Creatinine Ratio 14.8 (12.0-20.0); Calcium, Blood 8.8 mg/dL (8.5-10.1); Creatinine, Blood 1.22 mg/dL (0.60-1.20); Globulin, Blood 3.5 g/dL (2.2-4.0); Potassium, Blood 4.2 mmol/L (3.5-5.5); Total Protein, Blood 7.2 g/dL (6.4-8.2)
[2024-09-12] MEDS ORDERED: Bactrim Ds Tab1 EACH PO (14:49)
[2024-09-12 15:00] VITALS: BP 94/82
== END 2024-09-12 15:26 | disposition home or self-care (01) ==
LOC: ER 11:31
PROVIDERS: Emergency Medicine
DX: R06.02 Shortness of breath (principal); L08.89 Other specified local infections of the skin and subcutaneous tissue; I11.0 Hypertensive heart disease with heart failure; I50.9 Heart failure, unspecified; I48.91 Unspecified atrial fibrillation; I25.2 Old myocardial infarction; E11.9 Type 2 diabetes mellitus without complications; Z95.1 Presence of aortocoronary bypass graft; Z79.85 Long-term (current) use of injectable non-insulin antidiabetic drugs; Z79.01 Long term (current) use of anticoagulants; Z79.82 Long term (current) use of aspirin; Z79.899 Other long term (current) drug therapy
CPT/HCPCS: 71046; 73630; 80053; 83880; 84484; 85025; 93005; 93010; 99285-25

== ENCOUNTER 2025-03-07 10:22 | Inpatient (IN) | payer OTHER ==
[~2025-03-07] VITALS: Ht 180.3 cm; Wt 96.5 kg
[~2025-03-07 10:22] MED LIST changes: +Bactrim Ds Tab1 EACH PO; -SERT25 PO; +SERT50 PO
[2025-03-07] MEDS ORDERED: NS 1,000 ML IV SCH (10:50)
[2025-03-07 11:09] LABS: BASOPHILS ABSOLUTE AUTO 0.03 K/mm3 (0.00-0.23); BASOPHILS PERCENT AUTO 0 % (0-2); EOSINOPHILS ABSOLUTE AUTO 0.07 K/mm3 (0.00-0.68); EOSINOPHILS PERCENT AUTO 1 % (0-6); Hematocrit 35.2 % (37.0-53.0); Hemoglobin 11.2 g/dL (13.5-17.5); IMMATURE GRAN ABSOLUTE AUTO 0.02 K/mm3 (0.00-0.10); IMMATURE GRAN PERCENT AUTO 0 % (0-1); LYMPHOCYTES ABSOLUTE AUTO 0.60 K/mm3 (0.84-5.20); LYMPHOCYTES PERCENT AUTO 9 % (21-46); MONOCYTES ABSOLUTE AUTO 0.57 K/mm3 (0.16-1.47); MONOCYTES PERCENT AUTO 8 % (4-13); Mean Corpuscular HGB Conc 31.8 g/dL (31.5-36.5); Mean Corpuscular Volume 91 fL (80-100); NEUTROPHILS ABSOLUTE AUTO 5.57 K/mm3 (1.96-9.15); NEUTROPHILS PERCENT AUTO 81 % (41-73); NRBC ABSOLUTE 0.00 K/mm3 (0.00-0.02); NRBC Auto 0.0 /100 WBC (0.0-0.2); Platelet Count 231 K/mm3 (150-400); RDW Coefficient Variation 14.4 % (11.7-14.2); RDW Standard Deviation 48.6 fL (35.1-46.3)
[2025-03-07] MEDS ORDERED: Ondansetron HCl 2 MG / ML 2ML Vial IV ONE (11:10)
[2025-03-07 11:28] LABS: Alanine Aminotransfer (ALT/SGP 14.0 U/L (12-78); Albumin, Blood 3.2 g/dL (3.4-5.0); Albumin/Globulin Ratio 0.9 (0.8-1.8); Anion Gap 9.0 mmol/L (3-11); Aspartate Aminotrans (AST/SGOT 14.0 U/L (12-37); Bilirubin, Total 1.8 mg/dL (0.1-1.0); Blood Urea Nitrogen 12.0 mg/dL (8-24); CO2, Blood 27.0 mmol/L (21-32); Calcium, Blood 8.9 mg/dL (8.5-10.1); Chloride, Blood 104.0 mmol/L (98-108); Creatinine, Blood 1.18 mg/dL (0.60-1.20); Globulin, Blood 3.6 g/dL (2.2-4.0); Glucose, Blood 128.0 mg/dL (70-99); Potassium, Blood 3.5 mmol/L (3.5-5.5); Sodium, Blood 136.0 mmol/L (136-145); Total Protein, Blood 6.8 g/dL (6.4-8.2)
[2025-03-07 12:54] LABS: Influenza A, PCR NEGATIVE (NEGATIVE); Influenza B, PCR NEGATIVE (NEGATIVE); Resp Syncytial Virus, PCR NEGATIVE (NEGATIVE); SARS-Cov-2 (COVID-19) PCR, MMC NEGATIVE (NEGATIVE)
[2025-03-07] MEDS ORDERED: Ipratropium/Albuterol SulF 2.5-0.5MG/3 ML Amp INH SCH (13:35)
[2025-03-07] MEDS ORDERED: Albumin (Human) 25gm/100ml 100 ML IV ONE (14:35)
[2025-03-07] MEDS ORDERED: Furosemide 10 MG / ML 2ML Vial IV ONE (14:35)
--- NOTE | 2025-03-07 16:00 | NUR ---
ARRIVAL TO UNIT PT ARRIVED TO PCU VIA GURNEY AND ON RA. PT ABLE TO TRANSFER FROM GURNEY TO PCU BED ON HIS OWN, TOLERATED WELL. PT LUNGS WITH CRACKLE NOTED IN THE BILAT BASES, NO REPORT OF SOB AT THIS TIME. PT VITALS TAKEN AT ARRIVAL. WHILE BP CUFF INFLATING, PT HR SUZANNE DOWN TO 34. PT ASSESSED AND REPORTED LIGHTEHEADNESS BRIEFLY. CONTACTED AND NOTIFIED OF SUZANNE EPISODE. OTHER VSS. PT ORIENTED TO ROOM AND CALL LIGHT PT FAMILY PRESENT AT TIME OF ARRIVAL TO UNIT.
--- NOTE | 2025-03-07 16:22 | NUR ---
UPDATE THIS RN REQUESTED SAP MOBILITY ARCHITECT TO PRINT SUZANNE EPISODE. SAP MOBILITY ARCHITECT NOTIFIED THIS RN THAT PT HAD FIRST DEGREE BLOCK, A BBB, AND A QTC OF 0.54MS. MD CONTACTED AND NOTIFIED OF RECENT FINDINGS. REPEAT EKG ORDERED.
[2025-03-07] MEDS ORDERED: Insulin Human Lispro 100 Units/ML 3ML Syringe SC SCH (16:30)
[2025-03-07 16:40] LABS: pH Blood Venous 7.42 (7.34-7.37)
[2025-03-07] MEDS ORDERED: FLU VACC TS2025(65UP)/MF59C/PF 45 MCG/0.5 ML SYRINGE IM SCH (18:00)
--- NOTE | 2025-03-07 18:03 | NUR ---
ARRIVAL TO UNIT. RECIEVED REPORT FROM ED RN AT 1525. PATIENT ARRIVED TO UNIT AT 1545. PT A/O X 4, ABLE TO MAKE NEEDS KNOWN AND IS COOPERATIVE WITH CARE. FAMILY AT BEDSIDE. SATS MAINTAINED >90% ON 2L NC, ENDORSES SOB WHEN LAYING FLAT. PT IN SR WITH PACs, HR 70s. BP SOFT BUT STABLE. PT DENIES CHEST PAIN OR PRESSURE. NO ACUTE CHANGES SINCE ARRIVAL, SEE PREVIOUS NURSE NOTES. BED LOCKED IN LOWEST SETTING, CALL LIGHT IN REACH.
--- NOTE | 2025-03-07 18:30 | NUR ---
"Spiritual Care Visit | Pt. request Pt. is awake in bed with a room full of family. Pt. is pleasant. Facilitated a short life review and listened with empathy and a calming presence. Considered area of the Pts. service in the [employer]. Rapport is establsihed. Pt. verbalized gratitude for the spiritual care visit and welcomed this bobbin washer to return."
[2025-03-07 19:25] VITALS: BP 95/58
[2025-03-07 23:31] VITALS: BP 106/65
[2025-03-08 04:17] VITALS: BP 128/80
[2025-03-08 04:20] LABS: BASOPHILS ABSOLUTE AUTO 0.05 K/mm3 (0.00-0.23); BASOPHILS PERCENT AUTO 1 % (0-2); EOSINOPHILS ABSOLUTE AUTO 0.15 K/mm3 (0.00-0.68); EOSINOPHILS PERCENT AUTO 2 % (0-6); Hematocrit 32.5 % (37.0-53.0); Hemoglobin 10.4 g/dL (13.5-17.5); IMMATURE GRAN ABSOLUTE AUTO 0.03 K/mm3 (0.00-0.10); IMMATURE GRAN PERCENT AUTO 0 % (0-1); LYMPHOCYTES ABSOLUTE AUTO 1.01 K/mm3 (0.84-5.20); LYMPHOCYTES PERCENT AUTO 13 % (21-46); MONOCYTES ABSOLUTE AUTO 0.83 K/mm3 (0.16-1.47); MONOCYTES PERCENT AUTO 11 % (4-13); Mean Corpuscular HGB Conc 32.0 g/dL (31.5-36.5); Mean Corpuscular Volume 93 fL (80-100); NEUTROPHILS ABSOLUTE AUTO 5.49 K/mm3 (1.96-9.15); NEUTROPHILS PERCENT AUTO 73 % (41-73); NRBC ABSOLUTE 0.00 K/mm3 (0.00-0.02); NRBC Auto 0.0 /100 WBC (0.0-0.2); Platelet Count 234 K/mm3 (150-400); RDW Coefficient Variation 14.6 % (11.7-14.2); RDW Standard Deviation 49.7 fL (35.1-46.3)
--- NOTE | 2025-03-08 04:39 | NUR ---
SHIFT SUMMARY PT REMAINED A/OX4, COOPERATIVE WITH CARE, VERBALIZES NEEDS. TANACROSS, HEARING AIDS AT BEDSIDE. ON CONTINUOUS CARDIAC TELEMETRY, IN A NSR W/ HR IN 60'S. DENIES CHEST PAIN/PRESSURE, BUT ENDORSES LEFT ARM PAIN. MD AWARE. ON 2L NC WHILE AWAKE, CPAP WHILE SLEEPING. HOME CPAP IN ROOM. AT BASELINE, PT AMBULATES INDEPENDENTLY AT HOME. HAS BEEN USING FWW AND 1P ASSIST DURING THIS ADMISSION DUE TO WEAKNESS, O2 DEMAND, AND SOB. BPS SOFT AT BEGINNING OF SHIFT WITH SYSTOLIC BP 90'S, HELD CARDIAC MEDICATIONS PER EMAR. TROPONINS CONSISTENT IN 50'S, NOT TRENDING UP. NO ACUTE EVENTS THIS SHIFT.
[2025-03-08 04:51] LABS: Alanine Aminotransfer (ALT/SGP 13.0 U/L (12-78); Albumin, Blood 3.3 g/dL (3.4-5.0); Albumin/Globulin Ratio 1.0 (0.8-1.8); Anion Gap 7.0 mmol/L (3-11); Aspartate Aminotrans (AST/SGOT 13.0 U/L (12-37); Bilirubin, Total 1.8 mg/dL (0.1-1.0); Blood Urea Nitrogen 15.0 mg/dL (8-24); CO2, Blood 28.0 mmol/L (21-32); Calcium, Blood 8.7 mg/dL (8.5-10.1); Chloride, Blood 104.0 mmol/L (98-108); Creatinine, Blood 1.38 mg/dL (0.60-1.20); Globulin, Blood 3.2 g/dL (2.2-4.0); Glucose, Blood 110.0 mg/dL (70-99); Potassium, Blood 3.4 mmol/L (3.5-5.5); Sodium, Blood 136.0 mmol/L (136-145); Total Protein, Blood 6.5 g/dL (6.4-8.2)
[2025-03-08 07:49] VITALS: BP 108/60
[2025-03-08] MEDS ORDERED: Albumin (Human) 25gm/100ml 100 ML IV SCH (09:00)
[2025-03-08] MEDS ORDERED: Isosorbide Mononitrate 30 MG TABCR PO SCH (09:00)
[2025-03-08] MEDS ORDERED: Cholecalciferol 1000 Unit Tablet (=25MCG) PO SCH (09:00)
[2025-03-08] MEDS ORDERED: Furosemide 10 MG / ML 2ML Vial IV SCH (09:00)
--- NOTE | 2025-03-08 10:22 | NUR ---
ASSUMPTION OF CARE RECIEVED BEDSIDE REPORT FROM NIGHT RN. PATIENT SLEEPING IN BED WITH CPAP, SpO2 >90% WITHOUT O2 BLEED IN. SINUS RHYTHM 60-70s, SBP SOFT IN 100s, MAP >65. PATIENT AWAKENED DURING REPORT, SWITCHED TO 2L NC, SATS MAINTAINED > 90%. DENIES CHEST PAIN/PRESSURE, ENDORSES LEFT ARM PAIN, MD AWARE. PATIENT BED IN LOWEST POSTITION, CALL LIGHT WITHIN REACH.
--- NOTE | 2025-03-08 10:32 | NUR ---
UPDATE PT SLEEPING WITH CPAP, DESATTING TO 83-92, RT CONSULTED AND ADDED 3L BLEED IN AND DISCUSSED ALTERNATIVE MASK WITH AT BEDSIDE. BROUGHT FACE MASK IN FOR CPAP, SATS > 90%.
[2025-03-08 12:20] VITALS: BP 107/64
[2025-03-08 16:13] VITALS: BP 101/61
--- NOTE | 2025-03-08 18:35 | NUR ---
SHIFT SUMMARY PATIENT A/O X 4, COOPERATIVE WITH CARE. DOES NOT USE CALL LIGHT APPROPRIATELY, BED ALARM ON. PT AT BEDSIDE FOR MOST OF SHIFT, RECEPTIVE TO EDUCATION. PT IN NSR 70-80s, SBP 100-110s AND STABLE. PT ON 2L NC DURING DAY, CPAP FOR NIGHT USE. MULTIPLE EPISODES OF DESATTING TO LOW 80s WHILE SLEEPING. PTS BROUGHT ALTERNATIVE MASK FOR CPAP, SATS > 90% WHILE USING FACE MASK. HE ENDORSES PERSISTENT SHOULDER PAIN, MD AWARE. DIET ORDERS CHANGED TO CONSISTENT CARB, 2L FLUID RESTRICTION, AND 2G SODIUM RESTRICTION. SBA WITH FWW TO USE URINAL AT BEDSIDE, TOLERATES WELL. PATIENT REPORTS DIARRHEA X 2-3 WEEKS PRIOR TO ADMISSION, LAST BM 03/06/25. BED LOCKED IN LOW, CALL LIGHT IN REACH.
[2025-03-08 20:36] VITALS: BP 87/81
[2025-03-08 23:02] VITALS: BP 110/67
[2025-03-09 03:49] VITALS: BP 112/67
[2025-03-09 04:08] LABS: BASOPHILS ABSOLUTE AUTO 0.05 K/mm3 (0.00-0.23); BASOPHILS PERCENT AUTO 1 % (0-2); EOSINOPHILS ABSOLUTE AUTO 0.13 K/mm3 (0.00-0.68); EOSINOPHILS PERCENT AUTO 2 % (0-6); Hematocrit 30.4 % (37.0-53.0); Hemoglobin 9.6 g/dL (13.5-17.5); IMMATURE GRAN ABSOLUTE AUTO 0.04 K/mm3 (0.00-0.10); IMMATURE GRAN PERCENT AUTO 1 % (0-1); LYMPHOCYTES ABSOLUTE AUTO 0.99 K/mm3 (0.84-5.20); LYMPHOCYTES PERCENT AUTO 12 % (21-46); MONOCYTES ABSOLUTE AUTO 0.81 K/mm3 (0.16-1.47); MONOCYTES PERCENT AUTO 10 % (4-13); Mean Corpuscular HGB Conc 31.6 g/dL (31.5-36.5); Mean Corpuscular Volume 93 fL (80-100); NEUTROPHILS ABSOLUTE AUTO 6.30 K/mm3 (1.96-9.15); NEUTROPHILS PERCENT AUTO 76 % (41-73); NRBC ABSOLUTE 0.00 K/mm3 (0.00-0.02); NRBC Auto 0.0 /100 WBC (0.0-0.2); Platelet Count 220 K/mm3 (150-400); RDW Coefficient Variation 14.5 % (11.7-14.2); RDW Standard Deviation 49.1 fL (35.1-46.3)
[2025-03-09 04:44] LABS: Albumin, Blood 3.5 g/dL (3.4-5.0); Anion Gap 9 mmol/L (3-11); Blood Urea Nitrogen 17 mg/dL (8-24); CO2, Blood 27 mmol/L (21-32); Calcium, Blood 8.8 mg/dL (8.5-10.1); Chloride, Blood 102 mmol/L (98-108); Creatinine, Blood 1.41 mg/dL (0.60-1.20); Glucose, Blood 116 mg/dL (70-99); Phosphorus, Blood 3.4 mg/dL (2.5-4.9); Potassium, Blood 3.6 mmol/L (3.5-5.5); Sodium, Blood 134 mmol/L (136-145)
--- NOTE | 2025-03-09 05:29 | NUR ---
SHIFT SUMMARY A/OX4, VERBALIZES NEEDS, USES CALL LIGHT APPROPRIATELY, VERBALIZES NEEDS. DENIES PAIN. ON CONTINUOUS CARDIAC TELEMETRY, SINUS 70'S, DENIES CHEST PAIN/PRESSURE. 1+ EDEMA IN BLE. USING BEDSIDE URINAL WHILE STANDING AT SIDE OF BED. ON A 2L FLUID RESTRICTION. NO BM THIS SHIFT. NO ACUTE EVENTS THIS SHIFT.
[2025-03-09 07:47] VITALS: BP 114/71
[2025-03-09 12:20] VITALS: BP 96/62
--- NOTE | 2025-03-09 14:16 | NUR ---
ASSUMPTION OF CARE: ASSUMED CARE AT APPROX 1400. PT DECLINED BEDSIDE REPORT STATING HE WANTED TO TAKE A NAP. VISUALIZED FROM THE DOOR, BREATHING IS EVEN AND UNLABORED, SPO2 >92%, ON CPAP, IN NO APPARENT DISTRESS.
[2025-03-09 14:32] VITALS: BP 91/56
--- NOTE | 2025-03-09 14:32 | NUR ---
TRANSFER OF CARE NOTE; NO ACUTE CHANGE FOR THE SHIFT. PT WA SABLE TO TITRATED DOWN TO 1L ON O2 VIA NASAL CANNULA, PT USES CPAP AT BEDSIDE FORM HOME WITH 2L OF O2 BLEED SATS KEPT ABOVE 90%. MILD SOB WITH EXERTION. PT USES WALKER AT BEDSIDE TO STNAD AND USE URINAL, SBA VIA WALKER TO THE BATHROOM. PT ON 2L FLUID RESTRICTION, COMPLIANT. PLAN TO INCREASE DIURETICS AND IF STABLE DC TOMORROW. VITALS HRR 70-80'S, SBP 110'S, AFEBRILE. PT DENIES CHEST PAIN/PRESSURE. MOVES INDEPENDENTLY IN BED, SITS AT THE BEDSIDE FOR MEALS. PT HAS BEEN PLEASANT AND COOPERATIVE WITH CARES, ABLE TO MAKE NEEDS KNOWN. REPORT GIVEN TO FAMILIA/LISA VALDOVINOS.
[2025-03-09 17:31] VITALS: BP 101/62
--- NOTE | 2025-03-09 18:45 | NUR ---
End of Shift Pt continues to be A&O x4. VSS. Spo2 > 92% on 1L NC.
[2025-03-09 20:08] VITALS: BP 113/92
[2025-03-10 00:12] VITALS: BP 98/69
[2025-03-10 04:10] LABS: BASOPHILS ABSOLUTE AUTO 0.03 K/mm3 (0.00-0.23); BASOPHILS PERCENT AUTO 0 % (0-2); EOSINOPHILS ABSOLUTE AUTO 0.11 K/mm3 (0.00-0.68); EOSINOPHILS PERCENT AUTO 2 % (0-6); Hematocrit 30.7 % (37.0-53.0); Hemoglobin 9.9 g/dL (13.5-17.5); IMMATURE GRAN ABSOLUTE AUTO 0.04 K/mm3 (0.00-0.10); IMMATURE GRAN PERCENT AUTO 1 % (0-1); LYMPHOCYTES ABSOLUTE AUTO 1.01 K/mm3 (0.84-5.20); LYMPHOCYTES PERCENT AUTO 13 % (21-46); MONOCYTES ABSOLUTE AUTO 0.77 K/mm3 (0.16-1.47); MONOCYTES PERCENT AUTO 10 % (4-13); Mean Corpuscular HGB Conc 32.2 g/dL (31.5-36.5); Mean Corpuscular Volume 91 fL (80-100); NEUTROPHILS ABSOLUTE AUTO 5.62 K/mm3 (1.96-9.15); NEUTROPHILS PERCENT AUTO 74 % (41-73); NRBC ABSOLUTE 0.00 K/mm3 (0.00-0.02); NRBC Auto 0.0 /100 WBC (0.0-0.2); Platelet Count 225 K/mm3 (150-400); RDW Coefficient Variation 14.4 % (11.7-14.2); RDW Standard Deviation 48.4 fL (35.1-46.3)
[2025-03-10 04:32] LABS: Albumin, Blood 3.8 g/dL (3.4-5.0); Anion Gap 9 mmol/L (3-11); Blood Urea Nitrogen 21 mg/dL (8-24); CO2, Blood 26 mmol/L (21-32); Calcium, Blood 8.8 mg/dL (8.5-10.1); Chloride, Blood 102 mmol/L (98-108); Creatinine, Blood 1.50 mg/dL (0.60-1.20); Glucose, Blood 128 mg/dL (70-99); Magnesium, Blood 2.0 mg/dL (1.6-2.4); Phosphorus, Blood 3.1 mg/dL (2.5-4.9); Potassium, Blood 3.3 mmol/L (3.5-5.5); Sodium, Blood 134 mmol/L (136-145)
[2025-03-10] MEDS ORDERED: Potassium Chloride 10 Meq Tablet SA PO ONE (06:30)
[2025-03-10 08:03] VITALS: BP 108/66
[2025-03-10 13:12] VITALS: BP 98/58
[2025-03-10] MEDS ORDERED: JARDIANCE10 MG PO (13:57)
--- NOTE | 2025-03-10 14:59 | NUR ---
DISCHARGE: PT HAS BEEN A&Ox4, ANSWERING QUESTIONS APPROPRIATELY AND ABLE TO COMMUNICATE NEEDS. HOME O2 EVAL COMPLETED, O2 DELIVERED BY [facility] AND EDUCATION PROVIDED AT BEDSIDE. PT APPROVED FOR DISCHARGE HOME. ALL IV ACCESS DC'd WNL. PT AND SPOUSE PROVIDED WITH DC PAPERWORK/INSTRUCTIONS, ALL QUESTIONS HAVE BEEN ANSWERED. HOME CPAP PACKED AND SENT HOME W/PT. PT ESCORTED FROM UNIT VIA W/C IN NAD.
== END 2025-03-10 14:52 | disposition home or self-care (01) | DRG 291 ==
LOC: ER 10:22 → PCU 13:26
PROVIDERS: Emergency Medicine; ADMIT Family Medicine
PROC: 30233J1 Transfusion of Nonautologous Serum Albumin into Peripheral Vein, Percutaneous Approach (ICD-10-PCS; principal; 2025-03-07)
PROC: 3E02340 Introduction of Influenza Vaccine into Muscle, Percutaneous Approach (ICD-10-PCS; 2025-03-07)
DX: I11.0 Hypertensive heart disease with heart failure (principal); I50.23 Acute on chronic systolic (congestive) heart failure; J96.01 Acute respiratory failure with hypoxia; I48.91 Unspecified atrial fibrillation; E11.9 Type 2 diabetes mellitus without complications; I25.10 Atherosclerotic heart disease of native coronary artery without angina pectoris; N40.0 Benign prostatic hyperplasia without lower urinary tract symptoms; G47.33 Obstructive sleep apnea (adult) (pediatric); J44.9 Chronic obstructive pulmonary disease, unspecified; I44.7 Left bundle-branch block, unspecified; E86.0 Dehydration; R19.7 Diarrhea, unspecified; E86.1 Hypovolemia; I95.9 Hypotension, unspecified; I35.0 Nonrheumatic aortic (valve) stenosis; E66.9 Obesity, unspecified; Z91.018 Allergy to other foods; Z88.8 Allergy status to other drugs, medicaments and biological substances; Z88.5 Allergy status to narcotic agent; Z86.73 Personal history of transient ischemic attack (TIA), and cerebral infarction without residual deficits; I25.2 Old myocardial infarction; Z90.79 Acquired absence of other genital organ(s); Z95.5 Presence of coronary angioplasty implant and graft; Z99.89 Dependence on other enabling machines and devices; Z95.1 Presence of aortocoronary bypass graft; Z87.19 Personal history of other diseases of the digestive system; Z79.899 Other long term (current) drug therapy; Z79.82 Long term (current) use of aspirin; Z79.01 Long term (current) use of anticoagulants; Z68.30 Body mass index [BMI] 30.0-30.9, adult; Z23 Encounter for immunization
CPT/HCPCS: 36415; 71045; 80053; 80069; 82803; 82947; 83735; 83880; 84443; 84484; 85025; 87637; 93005; 93010; 93306; 94640; 94664; 94761; 94762; 96374; 99285-25; A9270; J1938; J2405; J7030; P9047